=== PATIENT | female | born 1985 | race Caucasian/White ===

== ENCOUNTER 2021-03-30 16:49 | Emergency (ER) | payer OTHER ==
[~2021-03-30] VITALS: Ht 162.6 cm; Wt 100.0 kg
[~2021-03-30 16:49] MED LIST: ALPR0.5T6 PO; DEXT30TA2 PO; HYDR-2769 PO
--- NOTE | 2021-03-30 17:53 | PHYS DOC ---
Past Medical History Additional Past Medical Histor: preeclampsia (CLINT KAUR MD) Past Surgical History: No Surgical History (CLINT KAUR MD) Smoking Status: Current Every Day Smoker Alcohol Use: None (CLINT KAUR MD) General Adult EDM: Chief Complaint: HYPERTENSION HPI: HPI: Patient is a 35 year old female with history of recent admission for substance- induced NSTEMI discharged on 03/28 who presents with elevated blood pressures. She has been checking her blood pressure at home and finding it to be elevated to 180/120s. She was admitted for NSTEMI and had elevated cardiac enzymes with a normal EKG. She had a cardiac catheterization that showed normal EF, normal LV filling pressures, and no coronary artery disease. She was discharged with prescription for hydrochlorothiazide for hypertension. She has been taking this as prescribed. Denies any recurrent amphetamine or stimulant use. She stopped taking her prescribed Adderall as well. She has had a few twinges of chest pain that last a few seconds but dissipate quickly. They are not exertional. They are not similar at all to her previous NM related chest pain (described as intense pressure radiating into the jaw). Denies any shortness of breath or new lower extremity edema. No change in urine output. No severe headaches, vision changes, speech difficulty, weakness or numbness. Her PCP is Dr. Estrada (CLINT KAUR MD) Review of Systems: Review of Systems: Constitutional: Denies fever or chills. [] Eyes: Denies change in visual acuity. [] HENT: Denies nasal congestion or sore throat. [] Respiratory: Denies cough or shortness of breath. [] Cardiovascular: Reports occasional twinges of chest pain. [] GI: Denies abdominal pain, nausea, vomiting, bloody stools or diarrhea. [] : Denies dysuria. [] Musculoskeletal: Denies back pain or joint pain. [] Integument: Denies rash. [] Neurologic: Denies headache, focal weakness or sensory changes. [] Endocrine: Denies polyuria or polydipsia. [] Lymphatic: Denies swollen glands. [] Psychiatric: Denies depression or anxiety. [] (CLINT KAUR MD) Heart Score: C/O Chest Pain: Yes HEART Score for Chest Pain: HEART Score for Chest Pain Response (Comments) Value History Slighlty/Non-Suspicious 0 ECG Normal 0 Age < 45 0 Risk Factors 1 or 2 Risk Factors 1 Troponin < Normal Limit 0 Total 1 Risk Factors: Risk Factors: DM, Current or recent (<one month) smoker, HTN, HLP, family history of CAD, obesity. Risk Scores: Score 0 - 3: 2.5% MACE over next 6 weeks - Discharge Home Score 4 - 6: 20.3% MACE over next 6 weeks - Admit for Clinical Observation Score 7 - 10: 72.7% MACE over next 6 weeks - Early Invasive Strategies (CLINT KAUR MD) Family History: Family History: No pertinent family history (CLINT KAUR MD) Allergies: Allergies: Allergies Coded Allergies Type Severity Reaction Last Updated Verified No Known Drug Allergies 03/26/21 No (CLINT KAUR MD) Physical Exam: PE: Constitutional: Well developed, well nourished, no acute distress, non-toxic appearance. [] HENT: Normocephalic, atraumatic, bilateral external ears normal, oropharynx moist, no oral exudates, nose normal. [] Eyes: PERRLA, EOMI, conjunctiva normal, no discharge. [] Neck: Normal range of motion, no tenderness, supple, no stridor. [] Cardiovascular:Heart rate regular rhythm, no murmur [] Lungs & Thorax: Bilateral breath sounds clear to auscultation, no crackles. [] Abdomen: Bowel sounds normal, soft, no tenderness, no masses, no pulsatile masses. [] Skin: Warm, dry, no erythema, no rash. [] Back: No tenderness, no CVA tenderness. [] Extremities: Mild pitting edema in lower extremities, unchanged from 2012 according to patient. [] Neurologic: Alert and oriented X 3, normal motor function, normal sensory function, no focal deficits noted. [] Psychologic: Affect normal, judgement normal, mood normal. [] (CLINT KAUR MD) Current Patient Data: Vital Signs: Vital Signs Date Time Temp Pulse Resp B/P (MAP) Pulse Ox O2 Delivery O2 Flow Rate FiO2 03/30/21 17:38 94 18 146/87 (106) 100 Room Air 03/30/21 17:30 99.4 99.4 (CLINT KAUR MD) EKG: EKG: Sinus rhythm. Rate 95. Normal axis. Normal intervals. No acute or chronic ischemic changes. [] (CLINT KAUR MD) Radiology/Procedures: Radiology/Procedures: [] (CLINT KAUR MD) Course & Med Decision Making: Course & Med Decision Making Pertinent Labs and Imaging studies reviewed. 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 Cardiac catheterization during that admission showed clean coronaries, normal LV EDP, and LV EF. She was discharged on hydrochlorothiazide for hypertensive control. She has been taking her medications and denies any recent substance abuse and is presenting today with hypertension 180/120s. On arrival is hypertensive 160s/90s. No evidence of hypertensive endorgan damage on exam or history. We will check cardiac enzymes and creatinine. If cardiac enzymes are improved from previous, and no YAW feel she will likely be safe for discharge starting another antihypertensive. Discussed with her PCP, Dr. Estrada, who would prefer metoprolol succinate 50 mg daily given her higher resting heart rate in the 90s. Signed out to oncoming colleague at the end of my shift with labs pending. 1751 (CLINT KAUR MD) Course & Med Decision Making Assumed care at shift change disposition pending labs. Patient's troponin and creatinine appear to be at baseline. His blood pressure improved to 160 systol ic. Patient will be discharged home. (GLENNA MCNAMARA I DO) Dragon Disclaimer: Dragon Disclaimer: This electronic medical record was generated, in whole or in part, using a voice recognition dictation system. (CLINT KAUR MD) Departure Departure Impression: Primary Impression: Hypertension Disposition: 01 HOME / SELF CARE / HOMELESS Referrals: ARPAN GALLEGOS MD (PCP) Schedule a follow up appointment sometime in the next 2 weeks. Patient Instructions: Hypertension Additional Instructions: You have a new medication called metoprolol succinate. Please take 50 mg daily. Please follow-up with Dr. Estrada to ensure that your blood pressure is improving. You will need him to refill your new prescription. You can also discuss your Adderall prescription with him. Please try to stop smoking. If you develop severe chest pain please return to the emergency department. Scripts Metoprolol Succinate (METOPROLOL SUCCINATE ( XL )) 25 Mg Tab.er.24h 2 TAB PO DAILY for hypertension for 30 Days, #60 TAB 0 Refills Prov: CLINT KAUR MD 03/30/21 CLINT KAUR MD Mar 30, 2021 17:53 GLENNA MCNAMARA DO Mar 30, 2021 18:33
[2021-03-30 17:56] LABS: BASO # 0.1 x10^3/uL (0.0-0.2); BASO % 1 % (0-3); EOS # 0.5 x10^3/uL (0.0-0.7); EOS % 6 % (0-3); HEMATOCRIT 41.1 % (36.0-47.0); HEMOGLOBIN 14.4 g/dL (12.0-15.5); LYMPH # 1.8 x10^3/uL (1.0-4.8); LYMPH % 20 % (24-48); MEAN CORPUSCULAR HEMOGLOBIN 32 pg (25-35); MEAN CORPUSCULAR HGB CONC 35 g/dL (31-37); MEAN CORPUSCULAR VOLUME 92 fL (79-100); MONO # 0.6 x10^3/uL (0.0-1.1); MONO % 7 % (0-9); NEUT # 5.9 x10^3/uL (1.8-7.7); NEUT % 66 % (31-73); PLATELET COUNT 344 x10^3/uL (140-400); RED BLOOD COUNT 4.45 x10^6/uL (3.50-5.40); RED CELL DISTRIBUTION WIDTH 12.4 % (11.5-14.5); WHITE BLOOD COUNT 8.9 x10^3/uL (4.0-11.0)
[2021-03-30] MEDS ORDERED: METO-239 PO (18:04)
[2021-03-30 18:45] LABS: CALCIUM 9.9 mg/dL (8.5-10.1); CREATININE 0.8 mg/dL (0.6-1.0); GFR 82.1; POTASSIUM 4.6 mmol/L (3.5-5.1)
[2021-03-30 19:39] VITALS: BP 102/91
[2021-03-30] MEDS ORDERED: METOPROLOL SUCC 24HR ER 25 MG TAB.ER.24H. PO ONE (19:45)
--- NOTE | 2021-03-30 22:16 | EKG ---
[facility] [address] [place] [address] Test Date: 2021-03-30 Test Time: 17:34:00 Pat Name: SHAHAB TALBERT Department: Room: Gender: F [employer] Supervisor: : 1985 Requested By: CLINT KAUR Order Number: [id number] Reading MD: Measurements Intervals [place] Rate: 95 P: 23 [place]: 130 QRS: 18 QRSD: 82 T: 29 QT: 332 QTc: 420 Interpretive Statements SINUS RHYTHM LEFT ATRIAL ABNORMALITY ABNORMAL ECG RI6.02 No previous ECG available for comparison
== END 2021-03-30 19:44 | disposition home or self-care (01) ==
LOC: ER 16:49
DX: I10 Essential (primary) hypertension (principal); F17.200 Nicotine dependence, unspecified, uncomplicated
CPT/HCPCS: 36415; 80048; 84484; 85025; 93005; 99285-25

== ENCOUNTER 2021-04-09 15:02 | Observation (INO) | payer OTHER ==
[~2021-04-09] VITALS: Ht 162.6 cm; Wt 104.3 kg
[~2021-04-09 15:02] MED LIST changes: +METO-239 PO
--- NOTE | 2021-04-09 15:49 | RAD ---
EXAM: Chest, 2 views. HISTORY: Chest pain. COMPARISON: None. FINDINGS: 2 views of the chest are obtained. There is no infiltrate, pleural effusion or pneumothorax . The heart is normal in size. IMPRESSION: No acute pulmonary finding. Electronically signed by: Barbie Betts MD (04/09/2021 3:47 PM) [id number]
--- NOTE | 2021-04-09 15:51 | ED.ADGEN ---
Past Medical History Additional Past Medical Histor: preeclampsia Past Surgical History: Other Smoking Status: Current Every Day Smoker Alcohol Use: Occasionally General Adult EDM: Chief Complaint: CHEST PAIN HPI: HPI: 35-year-old female presenting via EMS from her primary care provider's office for chest pain. Patient has a history significant for an NSTEMI approximately 2 weeks ago. She was seen at [facility] and diagnosed with NSTEMI, she admitted to relapse of methamphetamine use just prior to symptom onset at that time. She was transferred here and had a negative heart cath with a normal EF. Patient denies having any drug use recently. States that she has had these chest pains off and on since that initial episode but today it was more intense. States she took one of her hydrocodone that she had from her previous discharge as well as 325 mg aspirin prior to seeing her primary care provider. In the office there was some concern for her chest pain symptoms as well as ST elevation in some anterior leads on her EKG. Patient states the pain is in her left chest and radiates to her neck and her arm. Is worse with palpation, and states that her previous chest pain is worse with palpation. States she continues to smoke cigarettes, last marijuana use 1 to 2 weeks ago. States she has been avoiding her Adderall for ADHD caffeine, and not use any illicit substances other than marijuana. Has a history of hypertension and is on 3 medications. Hypertension started when she had preeclampsia when she was 2 years ago. Patient's father of an [place] at age 52. Patient was given 1 sublingual nitroglycerin by EMS that brought her chest pain from a 4 to a 0, she is currently chest pain-free in the emergency department. Review of Systems: Review of Systems: All other systems within normal limits except for as noted in the HPI Current Medications: Current Medications Medications (Trade) Dose Ordered Sig/Benny Start Time Stop Time Status Last Admin Dose Admin Fentanyl Citrate (Fentanyl 2ml Vial) 75 mcg 1X ONCE 04/09/21 17:15 04/09/21 17:20 DC 04/09/21 17:20 75 MCG Nitroglycerin (Nitrostat) 0.4 mg PRN Q5MIN PRN 04/09/21 16:00 04/09/21 16:04 0.4 MG Sodium Chloride 500 ml @ 500 mls/hr 1X ONCE 04/09/21 16:15 04/09/21 17:14 DC 04/09/21 16:15 500 MLS/HR Allergies: Allergies: Allergies Coded Allergies Type Severity Reaction Last Updated Verified No Known Drug Allergies 03/26/21 No Physical Exam: PE: Constitutional: Well developed, well nourished, no acute distress, non-toxic appearance. [] HENT: Normocephalic, atraumatic, bilateral external ears normal, nose normal. [] Eyes: PERRLA, conjunctiva normal, no discharge. [] Neck: No rigidity, supple, no stridor. [] Cardiovascular: Regular rate and rhythm, brisk cap refill [] Lungs & Thorax: Non labored symmetric respirations, no tachypnea or respiratory distress [] Abdomen: Soft, nondistended. Skin: Warm, dry, no erythema, no rash. [] Back: Unremarkable Extremities: No deformities, range of motion grossly intact, no lower extremity edema [] Neurologic: Alert and oriented X 3, no focal deficits noted. [] Psychologic: Affect normal, judgement normal, mood normal. [] Current Patient Data: Labs: Laboratory Tests Test 04/09/21 15:48 White Blood Count 8.1 x10^3/uL (4.0-11.0) Red Blood Count 4.16 x10^6/uL (3.50-5.40) Hemoglobin 13.2 g/dL (12.0-15.5) Hematocrit 37.9 % (36.0-47.0) Mean Corpuscular Volume 91 fL (79-100) Mean Corpuscular Hemoglobin 32 pg (25-35) Mean Corpuscular Hemoglobin Concent 35 g/dL (31-37) Red Cell Distribution Width 12.6 % (11.5-14.5) Platelet Count 352 x10^3/uL (140-400) Neutrophils (%) (Auto) 57 % (31-73) Lymphocytes (%) (Auto) 29 % (24-48) Monocytes (%) (Auto) 7 % (0-9) Eosinophils (%) (Auto) 6 % (0-3) H Basophils (%) (Auto) 1 % (0-3) Neutrophils # (Auto) 4.6 x10^3/uL (1.8-7.7) Lymphocytes # (Auto) 2.4 x10^3/uL (1.0-4.8) Monocytes # (Auto) 0.5 x10^3/uL (0.0-1.1) Eosinophils # (Auto) 0.5 x10^3/uL (0.0-0.7) Basophils # (Auto) 0.1 x10^3/uL (0.0-0.2) D-Dimer (Lulu) < 0.27 ug/mlFEU POC Urine HCG, Qualitative Hcg negative (Negative) Sodium Level 140 mmol/L (136-145) Potassium Level 3.9 mmol/L (3.5-5.1) Chloride Level 102 mmol/L (98-107) Carbon Dioxide Level 30 mmol/L (21-32) Anion Gap 8 (6-14) Blood Urea Nitrogen 18 mg/dL (7-20) Creatinine 0.9 mg/dL (0.6-1.0) Estimated GFR (Cockcroft-Gault) 71.7 BUN/Creatinine Ratio 20 (6-20) Glucose Level 85 mg/dL (70-99) Calcium Level 9.5 mg/dL (8.5-10.1) Magnesium Level 2.2 mg/dL (1.8-2.4) Total Bilirubin 0.3 mg/dL (0.2-1.0) Aspartate Amino Transferase (AST) 22 U/L (15-37) Alanine Aminotransferase (ALT) 46 U/L (14-59) Alkaline Phosphatase 78 U/L (46-116) Creatine Kinase 83 U/L (26-192) Myoglobin 35 ng/mL (9-82) Troponin I Quantitative 0.025 ng/mL (0.000-0.055) C-Reactive Protein, Quantitative 4.1 mg/L (0-3.3) H XI-Qcb-M-Type Natriuretic Peptide 133 pg/mL (0-124) H Total Protein 6.6 g/dL (6.4-8.2) Albumin 3.7 g/dL (3.4-5.0) Albumin/Globulin Ratio 1.3 (1.0-1.7) Lipase 115 U/L (73-393) Laboratory Tests 04/09/21 15:48 Laboratory Tests 04/09/21 15:48 Vital Signs: Vital Signs Date Time Temp Pulse Resp B/P (MAP) Pulse Ox O2 Delivery O2 Flow Rate FiO2 04/09/21 17:20 Room Air 04/09/21 17:13 16 136/64 (88) 100 04/09/21 16:04 86 04/09/21 15:18 98.0 98.0 EKG: EKG: Sinus rhythm, heart rate 90 bpm, normal axis, no ST elevation or depression, no ectopy. [] Heart Score: C/O Chest Pain: Yes HEART Score for Chest Pain: HEART Score for Chest Pain Response (Comments) Value History Moderately Suspicious 1 ECG Nonspecific Repolarizatio 1 Age < 45 0 Risk Factors 1 or 2 Risk Factors 1 Troponin < Normal Limit 0 Total 3 Risk Factors: Risk Factors: DM, Current or recent (<one month) smoker, HTN, HLP, family history of CAD, obesity. Risk Scores: Score 0 - 3: 2.5% MACE over next 6 weeks - Discharge Home Score 4 - 6: 20.3% MACE over next 6 weeks - Admit for Clinical Observation Score 7 - 10: 72.7% MACE over next 6 weeks - Early Invasive Strategies Radiology/Procedures: Radiology/Procedures: [facility] [address] [place] [address] IMAGING REPORT Signed PATIENT: SHAHAB TALBERT ACCOUNT: [id number] : 1985 LOCATION: ER AGE: 35 SEX: F EXAM STATUS: PRE ER ORD. PHYSICIAN: MARIBETH FAROOQ MD REASON: chest pain PROCEDURE: CHEST PA & LATERAL EXAM: Chest, 2 views. HISTORY: Chest pain. COMPARISON: None. FINDINGS: 2 views of the chest are obtained. There is no infiltrate, pleural effusion or pneumothorax. The heart is normal in size. IMPRESSION: No acute pulmonary finding. Electronically signed by: Barbie Quiñonez MD (04/09/2021 3:47 PM) [id number] DICTATED and SIGNED BY: BARBIE QUIÑONEZ MD DATE: 04/09/21 [id number] [] Course & Med Decision Making: Course & Med Decision Making Pertinent Labs and Imaging studies reviewed. (See chart for details) Patient with chest pain similar to previous and STEMI. Initial troponin detectable within normal range, we will keep her chest pain observation. Patient's symptoms usually start at night, discussed possibility of Prinzmetal's angina. Patient also states that she drank a diet drink today was for keto salts, which she had never had before [] Apolinar Disclaimer: Apolinar Disclaimer: This electronic medical record was generated, in whole or in part, using a voice recognition dictation system. Departure Departure Impression: Primary Impression: Chest pain Disposition: ADMITTED INPATIENT Admitting Physician: IVY Condition: STABLE Referrals: ARPAN GALLEGOS MD (PCP) MARIBETH FAROOQ MD Apr 09, 2021 15:51
[2021-04-09] MEDS ORDERED: NITROGLYCERIN SUBLINGUAL 0.4 MG BOTTLE OF 25. SL PRN ×3 (16:00→18:45)
[2021-04-09 16:02] LABS: BASO # 0.1 x10^3/uL (0.0-0.2); BASO % 1 % (0-3); EOS # 0.5 x10^3/uL (0.0-0.7); EOS % 6 % (0-3); HEMATOCRIT 37.9 % (36.0-47.0); HEMOGLOBIN 13.2 g/dL (12.0-15.5); LYMPH # 2.4 x10^3/uL (1.0-4.8); LYMPH % 29 % (24-48); MEAN CORPUSCULAR HEMOGLOBIN 32 pg (25-35); MEAN CORPUSCULAR HGB CONC 35 g/dL (31-37); MEAN CORPUSCULAR VOLUME 91 fL (79-100); MONO # 0.5 x10^3/uL (0.0-1.1); MONO % 7 % (0-9); NEUT # 4.6 x10^3/uL (1.8-7.7); NEUT % 57 % (31-73); PLATELET COUNT 352 x10^3/uL (140-400); RED BLOOD COUNT 4.16 x10^6/uL (3.50-5.40); RED CELL DISTRIBUTION WIDTH 12.6 % (11.5-14.5); WHITE BLOOD COUNT 8.1 x10^3/uL (4.0-11.0)
[2021-04-09 16:14] LABS: CALCIUM 9.5 mg/dL (8.5-10.1); CREATININE 0.9 mg/dL (0.6-1.0); GFR 71.7; POTASSIUM 3.9 mmol/L (3.5-5.1)
[2021-04-09] MEDS ORDERED: IV NORMAL SALINE 500ML BAG 500 ML IV ONE (16:15)
[2021-04-09 16:26] LABS: ALBUMIN 3.7 g/dL (3.4-5.0); ALBUMIN/GLOBULIN RATIO 1.3 (1.0-1.7); C-REACTIVE PROTEIN 4.1 mg/L (0-3.3); MAGNESIUM 2.2 mg/dL (1.8-2.4); TOTAL BILIRUBIN 0.3 mg/dL (0.2-1.0); TOTAL PROTEIN 6.6 g/dL (6.4-8.2)
[2021-04-09] MEDS ORDERED: fentaNYL PF VIAL 100 MCG/2 ML VIAL IVP ONE (17:15)
--- NOTE | 2021-04-09 17:29 | EKG ---
[facility] [address] [place] [address] Test Date: 2021-04-09 Test Time: 15:29:32 Pat Name: SHAHAB TALBERT Department: Room: Gender: F General Activities Therapist: : 1985 Requested By: MARIBETH FAROOQ Order Number: [id number] Reading MD: Measurements Intervals [place] Rate: 98 P: 24 [place]: 140 QRS: 17 QRSD: 82 T: 26 QT: 364 QTc: 467 Interpretive Statements SINUS RHYTHM LEFT ATRIAL ABNORMALITY QRS(T) CONTOUR ABNORMALITY CONSIDER ANTEROLATERAL MYOCARDIAL DAMAGE ABNORMAL ECG RI6.01 No previous ECG available for comparison
[2021-04-09] MEDS ORDERED: ACETAMINOPHEN 325 MG TABLET. PO PRN ×2 (17:45→18:45)
[2021-04-09] MEDS ORDERED: ONDANSETRON PF 4 MG/2 ML VIAL. IVP PRN ×2 (17:45→18:45)
--- NOTE | 2021-04-09 18:39 | PDOC1 ---
History and Physical Date of Service: DOS: DATE: 04/09/21 TIME: 18:30 Chief Complaint: Chief Complain: Chest pain History of Present Illness: HPI: Patient is a 36-year-old female with past medical history of non-STEMI seen 2 weeks ago and now left heart cath completed that was negative and no interventions were done. She presents again today with chest pain that was similar in her substernal region compared to last time but this time it occurred while she was working. She states that she does have history of panic attacks but this does not feel like that. But right after this she says that she does have anxiety because she saw her dad of a heart attack when she was 19 years old and she has been seen in the ED before and she thought was a heart attack. She does have a history of methamphetamine abuse and THC abuse. Patient denies any fevers, shortness of breath, abdominal pain, syncope, palpitation, dysuria, diarrhea or bloody stools. Rest of history obtained from discussion with the ED physician, please read her HPI below 35-year-old female presenting via EMS from her primary care provider's office for chest pain. Patient has a history significant for an NSTEMI approximately 2 weeks ago. She was seen at [place] ED and diagnosed with NSTEMI, she admitted to relapse of methamphetamine use just prior to symptom onset at that time. She was transferred here and had a negative heart cath with a normal EF. Patient denies having any drug use recently. States that she has had these chest pains off and on since that initial episode but today it was more intense. States she took one of her hydrocodone that she had from her previous discharge as well as 325 mg aspirin prior to seeing her primary care provider. In the office there was some concern for her chest pain symptoms as well as ST elevation in some anterior leads on her EKG. Patient states the pain is in her left chest and radiates to her neck and her arm. Is worse with palpation, and states that her previous chest pain is worse with palpation. States she continues to smoke cigarettes, last marijuana use 1 to 2 weeks ago. States she has been avoiding her Adderall for ADHD caffeine, and not use any illicit substances other than marijuana. Has a history of hypertension and is on 3 medications. Hypertension started when she had preeclampsia when she was 2 years ago. Patient's father of an [place] at age 52. Patient was given 1 sublingual nitroglycerin by EMS that brought her chest pain from a 4 to a 0, she is currently chest pain-free in the emergency department. Past Medical/Surgical History: PMH/PSH: Past Medical History: preeclampsia Past Surgical History: Denies Allergies: Allergies: Coded Allergies: No Known Drug Allergies (Unverified , 03/26/21) Family History: Family History: Reviewed with not relevant findings Social History: Social History: Current everyday smoker and history of methamphetamine use Current Medications: Current Medications Current Medications Nitroglycerin (Nitrostat) 0.4 mg PRN Q5MIN PRN SL CHEST PAIN Last administered on 04/09/21at 16:04; Start 04/09/21 at 16:00 Sodium Chloride 500 ml @ 500 mls/hr 1X ONCE IV Last administered on 04/09/21at 16:15; Start 04/09/21 at 16:15; Stop 04/09/21 at 17:14; Status DC Fentanyl Citrate (Fentanyl 2ml Vial) 75 mcg 1X ONCE IVP Last administered on 04/09/21at 17:20; Start 04/09/21 at 17:15; Stop 04/09/21 at 17:20; Status DC Ondansetron HCl (Zofran) 4 mg PRN Q8HRS PRN IVP NAUSEA/VOMITING; Start 04/09/21 at 17:45; Stop 04/10/21 at 17:44 Fentanyl Citrate (Fentanyl 2ml Vial) 50 mcg PRN Q1HR PRN IVP PAIN; Start 04/09/21 at 17:45; Stop 04/10/21 at 17:44 Acetaminophen (Tylenol) 650 mg PRN Q4HRS PRN PO FEVER > 100.3'F; Start 04/09/21 at 17:45; Stop 04/10/21 at 17:44 Nitroglycerin (Nitrostat) 0.4 mg PRN Q5MIN PRN SL CHEST PAIN; Start 04/09/21 at 17:45; Stop 04/10/21 at 17:44 Active Scripts Active Metoprolol Succinate ( Xl ) (Metoprolol Succinate) 25 Mg Tab.er.24h 2 Tab PO DAILY 30 Days Hydrocodone-Apap 10-325 (Hydrocodone Bit/Acetaminophen) 1 Tab Tablet 1 Tab PO PRN Q6HRS PRN 6 Days Reported Alprazolam 0.5 Mg Tablet 0.5 Mg PO PRN Q6HRS PRN Adderall 30 Mg Tablet (Dextroamphetamine/Amphetamine) 30 Mg Tablet 1 Tab PO BID MDD 2 Tablet(s) 30 Days ROS: Review of Systems Review of System REVIEW OF SYSTEMS: GENERAL: Denies weakness SKIN: No bruising, hair changes or rashes. EYES: No blurred, double or loss of vision. NOSE AND THROAT: No history of nosebleeds, hoarseness or sore throat. HEART: Positive for chest pain LUNGS: Denies cough, hemoptysis, wheezing or shortness of breath. GASTROINTESTINAL: Denies changes in appetite, nausea, vomiting, diarrhea or constipation. GENITOURINARY: No history of frequency, urgency, hesitancy or nocturia. NEUROLOGIC: Denies history of numbness, tingling, or tremor. PSYCHIATRIC: No history of panic, anxiety or depression. ENDOCRINE: No history of heat or cold intolerance, polyuria or polydipsia. EXTREMITIES: Denies joint pain, pain on walking or stiffness. Physical Exam: Vital Signs: Vital Signs Date Time Temp Pulse Resp B/P (MAP) Pulse Ox O2 Delivery O2 Flow Rate FiO2 04/09/21 17:20 Room Air 04/09/21 17:13 16 136/64 (88) 100 04/09/21 16:04 86 04/09/21 15:18 98.0 98.0 Physcial Exam: General: Well developed, well nourished, no acute distress, well appearing HEENT: Pupils equally round and reactive to light, EOMI, no discharge, normal conjunctiva Neck: Supple, no nuchal rigidity, no JVD, trachea midline, no tenderness Cardiac: RRR, no murmurs, no gallops, no rubs. Reproducible chest tenderness in the subclavicular region. Chest/Lungs: CTAB, no wheeze, no rhonchi, no crackles Abdomen: soft, non-distended, no guarding, no peritoneal signs, non-tender Back: No tenderness Extremities: no edema, pulses intact, non-tender,capillary refill <3 sec bilateral upper and lower extremities, Neuro: Alert and oriented x 4, no focal deficits, normal speech all other Labs: Labs: Laboratory Tests Test 04/09/21 15:48 White Blood Count 8.1 x10^3/uL (4.0-11.0) Red Blood Count 4.16 x10^6/uL (3.50-5.40) Hemoglobin 13.2 g/dL (12.0-15.5) Hematocrit 37.9 % (36.0-47.0) Mean Corpuscular Volume 91 fL (79-100) Mean Corpuscular Hemoglobin 32 pg (25-35) Mean Corpuscular Hemoglobin Concent 35 g/dL (31-37) Red Cell Distribution Width 12.6 % (11.5-14.5) Platelet Count 352 x10^3/uL (140-400) Neutrophils (%) (Auto) 57 % (31-73) Lymphocytes (%) (Auto) 29 % (24-48) Monocytes (%) (Auto) 7 % (0-9) Eosinophils (%) (Auto) 6 % (0-3) Basophils (%) (Auto) 1 % (0-3) Neutrophils # (Auto) 4.6 x10^3/uL (1.8-7.7) Lymphocytes # (Auto) 2.4 x10^3/uL (1.0-4.8) Monocytes # (Auto) 0.5 x10^3/uL (0.0-1.1) Eosinophils # (Auto) 0.5 x10^3/uL (0.0-0.7) Basophils # (Auto) 0.1 x10^3/uL (0.0-0.2) D-Dimer (Lulu) < 0.27 ug/mlFEU Bedside Urine HCG, Qualitative Hcg negative (Negative) Sodium Level 140 mmol/L (136-145) Potassium Level 3.9 mmol/L (3.5-5.1) Chloride Level 102 mmol/L (98-107) Carbon Dioxide Level 30 mmol/L (21-32) Anion Gap 8 (6-14) Blood Urea Nitrogen 18 mg/dL (7-20) Creatinine 0.9 mg/dL (0.6-1.0) Estimated GFR (Cockcroft-Gault) 71.7 BUN/Creatinine Ratio 20 (6-20) Glucose Level 85 mg/dL (70-99) Calcium Level 9.5 mg/dL (8.5-10.1) Magnesium Level 2.2 mg/dL (1.8-2.4) Total Bilirubin 0.3 mg/dL (0.2-1.0) Aspartate Amino Transf (AST/SGOT) 22 U/L (15-37) Alanine Aminotransferase (ALT/SGPT) 46 U/L (14-59) Alkaline Phosphatase 78 U/L (46-116) Creatine Kinase 83 U/L (26-192) Myoglobin 35 ng/mL (9-82) Troponin I Quantitative 0.025 ng/mL (0.000-0.055) C-Reactive Protein, Quantitative 4.1 mg/L (0-3.3) MO-Clw-P-Type Natriuretic Peptide 133 pg/mL (0-124) Total Protein 6.6 g/dL (6.4-8.2) Albumin 3.7 g/dL (3.4-5.0) Albumin/Globulin Ratio 1.3 (1.0-1.7) Lipase 115 U/L (73-393) Laboratory Tests Test 04/09/21 15:48 White Blood Count 8.1 x10^3/uL (4.0-11.0) Red Blood Count 4.16 x10^6/uL (3.50-5.40) Hemoglobin 13.2 g/dL (12.0-15.5) Hematocrit 37.9 % (36.0-47.0) Mean Corpuscular Volume 91 fL (79-100) Mean Corpuscular Hemoglobin 32 pg (25-35) Mean Corpuscular Hemoglobin Concent 35 g/dL (31-37) Red Cell Distribution Width 12.6 % (11.5-14.5) Platelet Count 352 x10^3/uL (140-400) Neutrophils (%) (Auto) 57 % (31-73) Lymphocytes (%) (Auto) 29 % (24-48) Monocytes (%) (Auto) 7 % (0-9) Eosinophils (%) (Auto) 6 % (0-3) Basophils (%) (Auto) 1 % (0-3) Neutrophils # (Auto) 4.6 x10^3/uL (1.8-7.7) Lymphocytes # (Auto) 2.4 x10^3/uL (1.0-4.8) Monocytes # (Auto) 0.5 x10^3/uL (0.0-1.1) Eosinophils # (Auto) 0.5 x10^3/uL (0.0-0.7) Basophils # (Auto) 0.1 x10^3/uL (0.0-0.2) D-Dimer (Lulu) < 0.27 ug/mlFEU Bedside Urine HCG, Qualitative Hcg negative (Negative) Sodium Level 140 mmol/L (136-145) Potassium Level 3.9 mmol/L (3.5-5.1) Chloride Level 102 mmol/L (98-107) Carbon Dioxide Level 30 mmol/L (21-32) Anion Gap 8 (6-14) Blood Urea Nitrogen 18 mg/dL (7-20) Creatinine 0.9 mg/dL (0.6-1.0) Estimated GFR (Cockcroft-Gault) 71.7 BUN/Creatinine Ratio 20 (6-20) Glucose Level 85 mg/dL (70-99) Calcium Level 9.5 mg/dL (8.5-10.1) Magnesium Level 2.2 mg/dL (1.8-2.4) Total Bilirubin 0.3 mg/dL (0.2-1.0) Aspartate Amino Transf (AST/SGOT) 22 U/L (15-37) Alanine Aminotransferase (ALT/SGPT) 46 U/L (14-59) Alkaline Phosphatase 78 U/L (46-116) Creatine Kinase 83 U/L (26-192) Myoglobin 35 ng/mL (9-82) Troponin I Quantitative 0.025 ng/mL (0.000-0.055) C-Reactive Protein, Quantitative 4.1 mg/L (0-3.3) GP-Rsi-D-Type Natriuretic Peptide 133 pg/mL (0-124) Total Protein 6.6 g/dL (6.4-8.2) Albumin 3.7 g/dL (3.4-5.0) Albumin/Globulin Ratio 1.3 (1.0-1.7) Lipase 115 U/L (73-393) Images: Images CXR Impression: 1. No acute cardiopulmonary process. Assessment/Plan Assessment/Plan Chest pain concerning for unstable angina/NSTEMI, possible pericarditis, most likely musculoskeletal involvement with reproducible chest tenderness upon palpation History of methamphetamine abuse Polysubstance abuse Morbid obesity Admit to Hospitalist service for further management EKG showing diffuse ST elevations Troponin negative x1 Continue aspirin, Cardiology consulted for predischarge stress testing Continue nitroglycerin as needed for pain Continue beta-zarina if blood pressures allow Continue high intensity statins IV morphine as needed Consider Lovenox Maintain O2 sats between 88 to 95% Trend troponins Repeat EKG in the a.m. Continue telemetry monitoring Monitor for electrolyte abnormalities Consider NSAIDs for pericarditis pain or musculoskeletal pain Justifications for Admission Other Justification JAVI VERMA MD Apr 09, 2021 18:39
[2021-04-09] MEDS ORDERED: DEXTROSE 50% 25 GM / 50ML DISP.SYRIN. IV PRN (18:45)
[2021-04-09] MEDS ORDERED: PROCHLORPERAZINE 10 MG/2 ML VIAL. IV PRN (18:45)
[2021-04-09] MEDS: IV NORMAL SALINE 1000ML BAG 1,000 ML IV SCH ×2 (18:45→22:04)
[2021-04-09] MEDS ORDERED: SENNOSIDES 8.6 MG TABLET PO PRN (18:45)
[2021-04-09] MEDS ORDERED: DOCUSATE SODIUM 100 MG CAPSULE. PO PRN (18:45)
[2021-04-09] MEDS: fentaNYL PF VIAL 100 MCG/2 ML VIAL IVP PRN ×4 (18:48→23:40)
[2021-04-09 19:21] LABS: BARBITURATES NEG (NEG); BENZODIAZEPINES NEG (NEG); CANNABINOIDS NEG (NEG); COCAINE NEG (NEG); METHADONE NEG (NEG); OPIATES POS (NEG); PHENCYCLIDINE NEG (NEG)
[2021-04-09 19:25] LABS: AMPHETAMINE/METHAMPHETAMINE NEG (NEG)
[2021-04-09 19:36] LABS: BILIRUBIN,URINE NEGATIVE (NEG); CLARITY,URINE CLEAR; COLOR,URINE YELLOW; NITRITE,URINE NEGATIVE (NEG); PROTEIN,URINE NEGATIVE (NEG-TRACE); UROBILINOGEN,URINE 0.2 mg/dL (0.2 mg/dL)
[2021-04-09 19:43] LABS: AMORPHOUS SEDIMENT,UR PRESENT /HPF; BACTERIA,URINE FEW /HPF (0-FEW); RBC,URINE RARE /HPF (0-2)
[2021-04-09] MEDS: LORazepam 0.5 MG TABLET PO PRN (19:52)
[2021-04-09] MEDS ORDERED: ENOXAPARIN 40 MG/0.4 ML SYRINGE. SQ SCH (21:00)
[2021-04-09 21:40] VITALS: BP 149/91
--- NOTE | 2021-04-09 22:00 | NUR ---
The patient, SHAHAB TALBERT, 35 y/o, F admitted by JAVI VERMA MD, was given written information regarding hospital policies, unit procedures and contact persons. Pt alert and oriented x4 pt ambulated to restroom with standby assist and to bed. Vs obtained and stable assessment complained of pain to chest,and back with an headache 10/10 pt also feeling nauseated. Call light placed in pt reach will medicate pt and resume care.Pt personal belongings at bedside.
[2021-04-09 23:00] VITALS: BP 134/81
[2021-04-10] MEDS: fentaNYL PF VIAL 100 MCG/2 ML VIAL IVP PRN ×4 (00:57→07:27)
[2021-04-10] MEDS ORDERED: HYDR25TA10 PO (01:22)
[2021-04-10] MEDS: LORazepam 0.5 MG TABLET PO PRN (02:04)
[2021-04-10 02:51] VITALS: BP 118/70
[2021-04-10 05:01] LABS: BASO % 1 % (0-3); EOS % 0 % (0-3); HEMATOCRIT 38.3 % (36.0-47.0); HEMOGLOBIN 13.1 g/dL (12.0-15.5); LYMPH # 2.1 x10^3/uL (1.0-4.8); LYMPH % 35 % (24-48); MEAN CORPUSCULAR HEMOGLOBIN 32 pg (25-35); MEAN CORPUSCULAR HGB CONC 34 g/dL (31-37); MEAN CORPUSCULAR VOLUME 93 fL (79-100); MONO # 0.6 x10^3/uL (0.0-1.1); MONO % 10 % (0-9); NEUT # 3.3 x10^3/uL (1.8-7.7); NEUT % 55 % (31-73); PLATELET COUNT 280 x10^3/uL (140-400); RED BLOOD COUNT 4.14 x10^6/uL (3.50-5.40); WHITE BLOOD COUNT 6.1 x10^3/uL (4.0-11.0)
[2021-04-10 05:34] LABS: CALCIUM 8.9 mg/dL (8.5-10.1); CREATININE 0.8 mg/dL (0.6-1.0); GFR 82.1; MAGNESIUM 2.3 mg/dL (1.8-2.4); PHOSPHORUS 4.4 mg/dL (2.6-4.7); POTASSIUM 4.2 mmol/L (3.5-5.1)
[2021-04-10 07:00] VITALS: BP 130/85
[2021-04-10] MEDS: IV NORMAL SALINE 1000ML BAG 1,000 ML IV SCH (07:29)
[2021-04-10] MEDS ORDERED: ASPIRIN ENTERIC COATED 81 MG TABLET.DR. PO SCH (08:00)
[2021-04-10] MEDS ORDERED: PANTOPRAZOLE 40 MG TABLET.DR. PO ONE (09:30)
[2021-04-10] MEDS ORDERED: LIDO:MAALOX 1:1 20 ML SINGLE DOSE. SWSW ONE (09:30)
--- NOTE | 2021-04-10 09:53 | PDOC ---
ANKUR MAYA DIRECTOR OF CASEWORK SERVICES 04/10/21 0953: CARDIO Progress Notes Date and Time Date of Service 04/10/2021 Time of Evaluation 0920 Subjective Subjective: No Chest Pain, No shortness of breath, No Palpitations Vitals Vitals Vital Signs Date Time Temp Pulse Resp B/P (MAP) Pulse Ox O2 Delivery O2 Flow Rate FiO2 04/10/21 07:27 16 95 Room Air 04/10/21 07:00 97.9 89 130/85 (100) 97.9 04/10/21 02:36 2.0 Weight Weight [ ] Input and Output Intake and Output Intake and Output 04/10/21 07:00 Intake Total 300 ml Output Total 400 ml Balance -100 ml Intake Oral 300 ml Output Urine Total 400 ml Laboratory Labs Laboratory Tests Test 04/09/21 15:44 04/09/21 15:48 04/09/21 18:55 04/09/21 23:40 Urine Collection Type Unknown Urine Color Yellow Urine Clarity Clear Urine pH 7.0 (<5.0-8.0) Urine Specific [place] 1.020 (1.000-1.030) Urine Protein Negative mg/dL (NEG-TRACE) Urine Glucose (UA) Negative mg/dL (NEG) Urine Ketones (Stick) Negative mg/dL (NEG) Urine Blood Small (NEG) Urine Nitrite Negative (NEG) Urine Bilirubin Negative (NEG) Urine Urobilinogen Dipstick 0.2 mg/dL (0.2 mg/dL) Urine Leukocyte Esterase Trace (NEG) Urine RBC Rare /HPF (0-2) Urine WBC 1-4 /HPF (0-4) Urine Squamous Epithelial Cells Many /LPF Urine Amorphous Sediment Present /HPF Urine Bacteria Few /HPF (0-FEW) Urine Mucus Slight /LPF Urine Opiates Screen Pos (NEG) Urine Methadone Screen Neg (NEG) Urine Barbiturates Neg (NEG) Urine Phencyclidine Screen Neg (NEG) Urine Amphetamine/Methamphetamine Neg (NEG) Urine Benzodiazepines Screen Neg (NEG) Urine Cocaine Screen Neg (NEG) Urine Cannabinoids Screen Neg (NEG) Urine Ethyl Alcohol Neg (NEG) White Blood Count 8.1 x10^3/uL (4.0-11.0) Red Blood Count 4.16 x10^6/uL (3.50-5.40) Hemoglobin 13.2 g/dL (12.0-15.5) Hematocrit 37.9 % (36.0-47.0) Mean Corpuscular Volume 91 fL (79-100) Mean Corpuscular Hemoglobin 32 pg (25-35) Mean Corpuscular Hemoglobin Concent 35 g/dL (31-37) Red Cell Distribution Width 12.6 % (11.5-14.5) Platelet Count 352 x10^3/uL (140-400) Neutrophils (%) (Auto) 57 % (31-73) Lymphocytes (%) (Auto) 29 % (24-48) Monocytes (%) (Auto) 7 % (0-9) Eosinophils (%) (Auto) 6 % (0-3) Basophils (%) (Auto) 1 % (0-3) Neutrophils # (Auto) 4.6 x10^3/uL (1.8-7.7) Lymphocytes # (Auto) 2.4 x10^3/uL (1.0-4.8) Monocytes # (Auto) 0.5 x10^3/uL (0.0-1.1) Eosinophils # (Auto) 0.5 x10^3/uL (0.0-0.7) Basophils # (Auto) 0.1 x10^3/uL (0.0-0.2) D-Dimer (Lulu) < 0.27 ug/mlFEU Bedside Urine HCG, Qualitative Hcg negative (Negative) Sodium Level 140 mmol/L (136-145) Potassium Level 3.9 mmol/L (3.5-5.1) Chloride Level 102 mmol/L (98-107) Carbon Dioxide Level 30 mmol/L (21-32) Anion Gap 8 (6-14) Blood Urea Nitrogen 18 mg/dL (7-20) Creatinine 0.9 mg/dL (0.6-1.0) Estimated GFR (Cockcroft-Gault) 71.7 BUN/Creatinine Ratio 20 (6-20) Glucose Level 85 mg/dL (70-99) Calcium Level 9.5 mg/dL (8.5-10.1) Magnesium Level 2.2 mg/dL (1.8-2.4) Total Bilirubin 0.3 mg/dL (0.2-1.0) Aspartate Amino Transf (AST/SGOT) 22 U/L (15-37) Alanine Aminotransferase (ALT/SGPT) 46 U/L (14-59) Alkaline Phosphatase 78 U/L (46-116) Creatine Kinase 83 U/L (26-192) Myoglobin 35 ng/mL (9-82) Troponin I Quantitative 0.025 ng/mL (0.000-0.055) 0.105 ng/mL (0.000-0.055) 0.146 ng/mL (0.000-0.055) C-Reactive Protein, Quantitative 4.1 mg/L (0-3.3) KJ-Ijq-W-Type Natriuretic Peptide 133 pg/mL (0-124) Total Protein 6.6 g/dL (6.4-8.2) Albumin 3.7 g/dL (3.4-5.0) Albumin/Globulin Ratio 1.3 (1.0-1.7) Lipase 115 U/L (73-393) SARS-CoV-2 Antigen (Rapid) Negative (NEGATIVE) Test 04/10/21 04:15 White Blood Count 6.1 x10^3/uL (4.0-11.0) Red Blood Count 4.14 x10^6/uL (3.50-5.40) Hemoglobin 13.1 g/dL (12.0-15.5) Hematocrit 38.3 % (36.0-47.0) Mean Corpuscular Volume 93 fL (79-100) Mean Corpuscular Hemoglobin 32 pg (25-35) Mean Corpuscular Hemoglobin Concent 34 g/dL (31-37) Red Cell Distribution Width 13.0 % (11.5-14.5) Platelet Count 280 x10^3/uL (140-400) Neutrophils (%) (Auto) 55 % (31-73) Lymphocytes (%) (Auto) 35 % (24-48) Monocytes (%) (Auto) 10 % (0-9) Eosinophils (%) (Auto) 0 % (0-3) Basophils (%) (Auto) 1 % (0-3) Neutrophils # (Auto) 3.3 x10^3/uL (1.8-7.7) Lymphocytes # (Auto) 2.1 x10^3/uL (1.0-4.8) Monocytes # (Auto) 0.6 x10^3/uL (0.0-1.1) Eosinophils # (Auto) 0.0 x10^3/uL (0.0-0.7) Basophils # (Auto) 0.0 x10^3/uL (0.0-0.2) Sodium Level 142 mmol/L (136-145) Potassium Level 4.2 mmol/L (3.5-5.1) Chloride Level 107 mmol/L (98-107) Carbon Dioxide Level 27 mmol/L (21-32) Anion Gap 8 (6-14) Blood Urea Nitrogen 12 mg/dL (7-20) Creatinine 0.8 mg/dL (0.6-1.0) Estimated GFR (Cockcroft-Gault) 82.1 Glucose Level 106 mg/dL (70-99) Calcium Level 8.9 mg/dL (8.5-10.1) Phosphorus Level 4.4 mg/dL (2.6-4.7) Magnesium Level 2.3 mg/dL (1.8-2.4) Troponin I Quantitative 0.153 ng/mL (0.000-0.055) Physical Exam HEENT: Neck Supple W Full Motion Chest: Symmetric LUNGS: Clear to Auscultation Heart: S1S2, RRR (SR) Abdomen: Soft N/T Extremities: No Edema, No Calf Tenderness Neurology: alert, oriented, follow commands Assessment Assessment HPI: This is a pleasant 35 yo female admitted for complains of chest pain. Reports of burning chest discomfort that goes even up to her nostrils. No SOA. No nausea or vomiting. Has been coughing but no flu like symptoms. No loss of taste or smell. she has not been vaccinated for covid-19 and she has been tested negative recently. No palpitations on diaphoresis. She has had extensive cardiac workup recently as noted below and came to ER again few days after that and her BP was noted to be high which at this time is controlled. Her trop was noted to be slightly elevated but no noted changes to her EKG. No recent falls or injury. Denies recent illicit drug use. She did tell me that she was tested + for the flu prior to her [facility] with flu symptoms associated with that. Assessment. 1. Atypical chest pain: described as burning up to her nose sometimes. Covid-19 neg so far. No arrhythmias 2. HTN: controlled 3. Possible GERD exacerbation 4. Mild troponin elevation: trop peaked at 0.15. EKG Sr no acute changes. Suspect demand mediated. Recent LHC unremarkable. Viral myocarditis would be part of the differential 5. Morbid obesity 6. Hx of meth use: Last + 03/26/2021. Tox screen is negative this time and denies using any illicit drugs from that time Recommendations 1. Continue home BP regimen. ASA 2. x1 gi cocktail, start on PPI 3. No further cardiac workup but will need to consider for outpt CMR 4. Follow up as scheduled April 23 at 1030 AM. <Conclusion> The left ventricle is normal size. The systolic function is normal on a technically difficult study. The LV Ejection Fraction is estimated at 50%. There are no regional wall motion abnormalities. There is mild concentric left ventricular hypertrophy. Doppler and Color Flow revealed no significant aortic regurgitation. There is no significant aortic valvular stenosis. Doppler and Color-flow revealed trace mitral regurgitation. Doppler and Color Flow revealed trace tricuspid regurgitation with an estimated PAP of 27 mmHg. DATE: 03/27/21 [id number] FINDINGS: ======= Aorta: 110/80 LVEDP: 9 mmHg Left ventriculogram: Ejection fraction 55% Normal wall motion without any evidence of aortic or mitral insufficiency. Coronary angiography: LM:Large caliber vessel with normal angiographic appearance. LAD: Large caliber vessel with normal angiographic appearance. LCx: Large caliber dominant vessel with normal angiographic appearance. RCA: Small caliber non-dominant vessel with normal angiographic appearance. CLOSURE: At case completion the right radial sheath was removed and a Terumo radial band was applied with 11 mL of air. Hemostasis was achieved. COMPLICATIONS: No acute complications noted Conclusion 1. Normal left sided filling pressures. 2. Normal LV systolic function. EF 55% 3. Normal angiographic appearance of the coronary arteries. Recommendations Aggressive Medical Therapy DATE: 03/27/21 [id number] Justicifation of Admission Dx: Justifications for Admission: Justification of Admission Dx: Yes TED HAYES MD 04/10/21 1710: CARDIO Progress Notes Plan Plan Patient seen and examined. Agree with above nurse practitioner note. Differential diagnosis includes musculoskeletal pain versus pericarditis. Consider colchicine upon discharge. Supportive care for now. ANKUR MAYA APRN Apr 10, 2021 09:53 TED HAYES MD Apr 10, 2021 17:10
[2021-04-10 10:38] VITALS: BP 129/88
--- NOTE | 2021-04-10 11:02 | EKG ---
[facility] [address] [place] [address] Test Date: 2021-04-10 Test Time: 11:00:42 Pat Name: SHAHAB TALBERT Department: Room: [facility] Gender: F Pharmacy Services Representative: JOESPH : 1985 Requested By: ANKUR MAYA Order Number: [id number] Reading MD: Viral Betts MD Measurements Intervals Rescue Rate: 99 P: 42 PA: 146 QRS: 38 QRSD: 78 T: 26 QT: 340 QTc: 442 Interpretive Statements SR Electronically Signed On 04-10-2021 14:54:12 CDT by Viral Betts MD
--- NOTE | 2021-04-10 11:59 | NUR ---
SS following for discharge planning. SS reviewed pt chart and discussed with pt RN. Pt is from home and is currently on room air. COVID19 negative. Cardiology consulted. Discharge plan is currently to home when medically ready for discharge. SS will continue to follow for discharge planning.
[2021-04-10] MEDS ORDERED: ONDANSETRON ODT 4 MG TAB.RAPDIS. PO PRN (13:00)
[2021-04-10] MEDS ORDERED: KETOROLAC 15 MG/ML VIAL. IVP ONE (13:00)
[2021-04-10] MEDS ORDERED: AMOXICILLIN/K CLAV 875/125MG TABLET. PO SCH (13:30)
[2021-04-10 14:20] VITALS: BP 128/80
--- NOTE | 2021-04-10 14:50 | NUR ---
Patient sleeping majority of the day but states she is still in pain. Patient at times cannot stay awake while RN in room.
[2021-04-10] MEDS ORDERED: NITR0.4T24 SL (15:24)
[2021-04-10] MEDS ORDERED: DOXY100C3 PO (15:24)
--- NOTE | 2021-04-10 15:27 | PDOC3 ---
[facility]-Discharge Summary Date of Admission: Date of Admission: Apr 09, 2021 Date of Discharge: Date of Discharge: Apr 10, 2021 Admission Diagnosis: Problems: (1) Chest pain (2) Hypertension Procedures: Procedures: Cardiology Hospital Course: Hospital Course: Patient is a 36-year-old female with past medical history of non-STEMI seen 2 weeks ago and now left heart cath completed that was negative and no interventions were done. She presents again today with chest pain that was similar in her substernal region compared to last time but this time it occurred while she was working. She states that she does have history of panic attacks but this does not feel like that. But right after this she says that she does have anxiety because she saw her dad of a heart attack when she was 19 years old and she has been seen in the ED before and she thought was a heart attack. She does have a history of methamphetamine abuse and THC abuse. Patient denies any fevers, shortness of breath, abdominal pain, syncope, palpitation, dysuria, diarrhea or bloody stools. Rest of history obtained from discussion with the ED physician, please read her HPI below 35-year-old female presenting via EMS from her primary care provider's office for chest pain. Patient has a history significant for an NSTEMI approximately 2 weeks ago. She was seen at [facility] and diagnosed with NSTEMI, she admitted to relapse of methamphetamine use just prior to symptom onset at that time. She was transferred here and had a negative heart cath with a normal EF. Patient denies having any drug use recently. States that she has had these chest pains off and on since that initial episode but today it was more intense. States she took one of her hydrocodone that she had from her previous discharge as well as 325 mg aspirin prior to seeing her primary care provider. In the office there was some concern for her chest pain symptoms as well as ST elevation in some anterior leads on her EKG. Patient states the pain is in her left chest and radiates to her neck and her arm. Is worse with palpation, and states that her previous chest pain is worse with palpation. States she continues to smoke cigarettes, last marijuana use 1 to 2 weeks ago. States she has been avoiding her Adderall for ADHD caffeine, and not use any illicit substances other than marijuana. Has a history of hypertension and is on 3 medications. Hypertension started when she had preeclampsia when she was 2 years ago. Patient's father of an DC at age 52. Patient was given 1 sublingual nitroglycerin by EMS that brought her chest pain from a 4 to a 0, she is currently chest pain-free in the emergency department. 04/10 Patient seen at the bedside this morning complaining of sinus and back pain. Improved with one-time Toradol. Evaluated by cardiology no need for any sort of intervention. Will discharge home today. Patient does report she gets frequent sinus infections and never finishes her antibiotics thus will give prescription for sinusitis treatment given her nasal pain and congestion. Disposition: Disposition/Orders: D/C to Home Activity: Activity: Resume previous activity Diet: Diet: Cardiac Medications: Home Meds Active Scripts Doxycycline Hyclate (DOXYCYCLINE HYCLATE) 100 Mg Capsule, 1 CAP PO BID for sinusitis, #28 CAP Prov:SHONDA BORGES MD 04/10/21 Nitroglycerin (NITROSTAT) 0.4 Mg Tab.subl, 0.4 MG SL PRN Q5MIN PRN for CHEST PAIN MDD 3 tablets, #30 TAB Prov:SHONDA BORGES MD 04/10/21 Metoprolol Succinate (METOPROLOL SUCCINATE ( XL )) 25 Mg Tab.er.24h, 2 TAB PO DAILY for hypertension for 30 Days, #60 TAB 0 Refills Prov:CLINT KAUR MD 03/30/21 Hydrocodone Bit/Acetaminophen (HYDROCODONE-APAP 10325 ) 1 Tab Tablet, 1 TAB PO PRN Q6HRS PRN for PAIN for 6 Days, #24 TAB 0 Refills Prov:RALPH SPRINGER MD 03/28/21 Reported Medications Hydrochlorothiazide (Hydrochlorothiazide) 25 Mg Tablet, 25 MG PO DAILY for , TAB 04/10/21 Alprazolam (ALPRAZOLAM) 0.5 Mg Tablet, 0.5 MG PO PRN Q6HRS PRN for ANXIETY / AGITATION, TAB 0 Refills 03/26/21 Scheduled Doxycycline Hyclate (Doxycycline Hyclate), 1 CAP PO BID Hydrochlorothiazide (Hydrochlorothiazide), 25 MG PO DAILY, (Reported) Metoprolol Succinate (Metoprolol Succinate ( Xl )), 2 TAB PO DAILY Scheduled PRN Alprazolam (Alprazolam), 0.5 MG PO PRN Q6HRS PRN for ANXIETY / AGITATION, (Reported) Hydrocodone Bit/Acetaminophen (Hydrocodone-Apap 10-325 ), 1 TAB PO PRN Q6HRS PRN for PAIN Nitroglycerin (Nitrostat), 0.4 MG SL PRN Q5MIN PRN for CHEST PAIN Justicifation of Admission Dx: Justifications for Admission: Justification of Admission Dx: Yes SHONDA BORGES MD Apr 10, 2021 15:27
--- NOTE | 2021-04-10 17:26 | NUR ---
Discharge Note: SHAHAB TLABERT [address] [place] [address] Discharge instructions and discharge home medications reviewed with Patient and a copy given. All questions have been answered and understanding verbalized. The following instructions and handouts were given: discharge instructions, follow ups, CP education, med list. Discontinued lines and drains: peripheral IVs intact. Patient discharged to Home or Self Care with Significant Other via [facility] at 1726.
[2021-04-11] MEDS ORDERED: PANTOPRAZOLE 40 MG TABLET.DR. PO SCH (07:30)
== END 2021-04-10 17:26 | disposition home or self-care (01) ==
LOC: ER 15:02 → ED HOLD 17:30 → 6 SOUTH 20:53
PROVIDERS: ADMIT Internal Medicine; ATTEND Internal Medicine
DX: R07.2 Precordial pain (principal); Z20.822 Contact with and (suspected) exposure to COVID-19; I25.2 Old myocardial infarction; F41.0 Panic disorder [episodic paroxysmal anxiety]; E66.01 Morbid (severe) obesity due to excess calories; F17.210 Nicotine dependence, cigarettes, uncomplicated; I10 Essential (primary) hypertension; F15.10 Other stimulant abuse, uncomplicated; F19.10 Other psychoactive substance abuse, uncomplicated; F41.9 Anxiety disorder, unspecified; Z82.49 Family history of ischemic heart disease and other diseases of the circulatory system
CPT/HCPCS: 36415; 71046; 80048; 80053; 80307; 81001; 81025; 82550; 83690; 83735; 83874; 83880; 84100; 84484; 85025; 85379; 86140; 87086; 87426; 93005; 96361; 96372; 96374; 96375; 96376; 99285; G0378; J1650; J1885; J2405; J3010; J7030; J7040; U0003; U0005; G0379

== ENCOUNTER 2021-09-09 11:13 | Observation (INO) | payer OTHER ==
[~2021-09-09] VITALS: Ht 162.6 cm; Wt 108.9 kg
[~2021-09-09 11:13] MED LIST changes: +DOXY100C3 PO; +HYDR25TA10 PO; +NITR0.4T24 SL
[2021-09-09] MEDS ORDERED: IV NORMAL SALINE 1000ML BAG 1,000 ML IV SCH (11:30)
--- NOTE | 2021-09-09 11:33 | PHYS DOC ---
Past Medical History Additional Past Medical Histor: preeclampsia Past Surgical History: Other Smoking Status: Current Every Day Smoker Alcohol Use: Occasionally General Adult EDM: Chief Complaint: CHEST PAIN HPI: HPI: Patient is a 36-year-old female who presents to the emergency department with generalized chest pain that started this morning. She rates the pain 8 out of 10. She states that it "feels cold" in her chest. She is also reporting bilateral jaw pain, sinus pressure and left arm pain. She reports nausea, lightheadedness, productive cough. She reports that the chest pain is worse with her cough. No alleviating factors. Patient denies vomiting, shortness of breath fevers. She reports that she has a history of elevated troponins and has had a heart catheterization at this hospital in March of last year, she states that the cath was normal and they told her she did not have a heart attack but her heart was under stress due to meth use. She reports that she took a full- strength aspirin prior to arrival. Other medical history involves hypertension and obesity. Review of Systems: Review of Systems: Constitutional: negative unless reported in HPI Eyes: negative unless reported in HPI HENT: negative unless reported in HPI Respiratory: negative unless reported in HPI Cardiovascular: negative unless reported in HPI GI: negative unless reported in HPI : negative unless reported in HPI Musculoskeletal: negative unless reported in HPI Integument: negative unless reported in HPI Neurologic: negative unless reported in HPI Endocrine: negative unless reported in HPI Lymphatic: negative unless reported in HPI Psychiatric: negative unless reported in HPI Heart Score: C/O Chest Pain: Yes HEART Score for Chest Pain: HEART Score for Chest Pain Response (Comments) Value History Moderately Suspicious 1 ECG Nonspecific Repolarizatio 1 Age < 45 0 Risk Factors >3 Risk Factors or Hx CAD 2 Troponin < Normal Limit 0 Total 4 Risk Factors: Risk Factors: DM, Current or recent (<one month) smoker, HTN, HLP, family history of CAD, obesity. Risk Scores: Score 0 - 3: 2.5% MACE over next 6 weeks - Discharge Home Score 4 - 6: 20.3% MACE over next 6 weeks - Admit for Clinical Observation Score 7 - 10: 72.7% MACE over next 6 weeks - Early Invasive Strategies Allergies: Allergies: Allergies Coded Allergies Type Severity Reaction Last Updated Verified No Known Drug Allergies 03/26/21 No Physical Exam: PE: Constitutional: Well developed, well nourished, no acute distress, non-toxic appearance. [] HENT: Normocephalic, atraumatic, bilateral external ears normal, oropharynx moist, no oral exudates, nose normal. [] Eyes: PERRL, EOMI, conjunctiva normal, no discharge. [] Neck: Normal range of motion, no tenderness, supple, no stridor. [] Cardiovascular:Heart rate regular rhythm, no murmur, chest pain is not reproducible with palpation [] Lungs & Thorax: Bilateral breath sounds clear to auscultation [] Abdomen: Bowel sounds normal, soft, no tenderness, no masses, no pulsatile masses. [] Skin: Warm, dry, no erythema, no rash. [] Back: Normal range of motion Extremities: No tenderness, no cyanosis, no clubbing, ROM intact, no edema. [] Neurologic: Alert and oriented X 3, normal motor function, normal sensory function, no focal deficits noted. [] Psychologic: Affect normal, judgement normal, mood normal. [] Current Patient Data: Labs: Laboratory Tests Test 09/09/21 11:53 09/09/21 12:54 09/09/21 13:07 09/09/21 13:12 White Blood Count 7.3 x10^3/uL Red Blood Count 4.59 x10^6/uL Hemoglobin 14.2 g/dL Hematocrit 41.6 % Mean Corpuscular Volume 91 fL Mean Corpuscular Hemoglobin 31 pg Mean Corpuscular Hemoglobin Concent 34 g/dL Red Cell Distribution Width 13.5 % Platelet Count 267 x10^3/uL Neutrophils (%) (Auto) 70 % Lymphocytes (%) (Auto) 19 % Monocytes (%) (Auto) 7 % Eosinophils (%) (Auto) 3 % Basophils (%) (Auto) 1 % Neutrophils # (Auto) 5.1 x10^3/uL Lymphocytes # (Auto) 1.4 x10^3/uL Monocytes # (Auto) 0.5 x10^3/uL Eosinophils # (Auto) 0.2 x10^3/uL Basophils # (Auto) 0.1 x10^3/uL Sodium Level 140 mmol/L Potassium Level 4.3 mmol/L Chloride Level 104 mmol/L Carbon Dioxide Level 24 mmol/L Anion Gap 12 Blood Urea Nitrogen 17 mg/dL Creatinine 0.7 mg/dL Estimated GFR (Cockcroft-Gault) 95.2 BUN/Creatinine Ratio 24 Glucose Level 88 mg/dL Calcium Level 8.7 mg/dL Total Bilirubin 0.8 mg/dL Aspartate Amino Transf (AST/SGOT) 15 U/L Alanine Aminotransferase (ALT/SGPT) 31 U/L Alkaline Phosphatase 99 U/L Troponin I High Sensitivity 19 ng/L Total Protein 7.6 g/dL Albumin 3.9 g/dL Albumin/Globulin Ratio 1.1 Urine Collection Type Unknown Urine Color Yellow Urine Clarity Clear Urine pH 6.0 Urine Specific [place] 1.020 Urine Protein Negative mg/dL Urine Glucose (UA) Negative mg/dL Urine Ketones (Stick) Trace mg/dL Urine Blood Negative Urine Nitrite Negative Urine Bilirubin Negative Urine Urobilinogen Dipstick 0.2 mg/dL Urine Leukocyte Esterase Negative Urine RBC 0 /HPF Urine WBC 0 /HPF Urine Squamous Epithelial Cells Few /LPF Urine Bacteria Moderate /HPF Urine Mucus Slight /LPF Bedside Urine HCG, Qualitative Hcg negative Current Medications Medications (Trade) Dose Ordered Sig/Benny Route PRN Reason Start Time Stop Time Status Last Admin Dose Admin Nitroglycerin (Nitrostat) 0.4 mg PRN Q5MIN PRN SL CP RATING > 08/2509/09/21 11:30 09/10/21 11:29 09/09/21 12:20 Sodium Chloride 1,000 ml @ 1,000 mls/hr Q1H IV 09/09/21 11:30 09/09/21 12:29 DC 09/09/21 12:03 Ketorolac Tromethamine (Toradol 30mg Vial) 30 mg 1X ONCE IVP 09/09/21 12:15 09/09/21 12:16 DC 09/09/21 12:17 EKG: EKG: EKG performed by ER 02/23/2021 shows sinus rhythm with a rate of 81, diffuse mild ST segment elevation less than 1 mm, no STEMI read by Dr. Sebastian. [] Radiology/Procedures: Radiology/Procedures: []PROCEDURE: PORTABLE CHEST 1V EXAM: Chest, single view. HISTORY: Chest pain. COMPARISON: 04/09/2021 FINDINGS: A frontal view of the chest is obtained. There is no infiltrate, pleural effusion or pneumothorax. The heart is normal in size. IMPRESSION: No acute pulmonary finding. Electronically signed by: Barbie Quiñonez MD (09/09/2021 11:48 AM) [id number] DICTATED and SIGNED BY: BARBIE QUIÑONEZ MD DATE: 09/09/21 [id number] Course & Med Decision Making: Course & Med Decision Making Pertinent Labs and Imaging studies reviewed. (See chart for details) [] Patient presents to the emergency department for chest pain that started this morning. Chest pain radiates to her left arm and she is having bilateral jaw pain. Chest pain is associated with nausea and lightheadedness. Patient does have a productive cough and the chest pain is worse with cough. She states that nothing makes the pain better. She has a history of COVID-19 diagnosed a week and a half ago. Patient does have a history of elevated troponins and had a catheterization in March, cath was clear and they told her elevated trops were due to meth use. CBC, CMP, troponin negative. Patient does have a heart score of 4 she does have nonspecific changes on her EKG and has a history of obesity, smoking, hypertension. Upon reevaluation of patient, she is sleeping in the ER bed and in no acute distress. I discussed admission with patient for serial troponins and cardiology consultation in which she declined stating that she has no one to watch her kids. I spoke with patient and she would like to be admitted at this time. I discussed patient's case with Ginny cardiology and he will be consulted. I discussed case with Dr. Almonte and he agreed to admit the patient under his services. ER bridge orders placed. Apolinar Disclaimer: Apolinar Disclaimer: This electronic medical record was generated, in whole or in part, using a voice recognition dictation system. Departure Departure Impression: Primary Impression: Chest pain Qualified Codes: R07.9 - Chest pain, unspecified Disposition: ADMITTED INPATIENT Admitting Physician: IVY Condition: GOOD Referrals: ARPAN GALLEGOS MD (PCP) TED HAYES MD, KIANA L APRN Sep 09, 2021 11:33
--- NOTE | 2021-09-09 11:50 | RAD ---
EXAM: Chest, single view. HISTORY: Chest pain. COMPARISON: 04/09/2021 FINDINGS: A frontal view of the chest is obtained. There is no infiltrate, pleural effusion or pneumo thorax. The heart is normal in size. IMPRESSION: No acute pulmonary finding. Electronically signed by: Barbie Betts MD (09/09/2021 11:48 AM) [id number]
[2021-09-09] MEDS: NITROGLYCERIN SUBLINGUAL 0.4 MG BOTTLE OF 25. SL PRN ×2 (12:01→12:20)
[2021-09-09 12:06] LABS: BASO # 0.1 x10^3/uL (0.0-0.2); BASO % 1 % (0-3); EOS # 0.2 x10^3/uL (0.0-0.7); EOS % 3 % (0-3); HEMATOCRIT 41.6 % (36.0-47.0); HEMOGLOBIN 14.2 g/dL (12.0-15.5); LYMPH # 1.4 x10^3/uL (1.0-4.8); LYMPH % 19 % (24-48); MEAN CORPUSCULAR HEMOGLOBIN 31 pg (25-35); MEAN CORPUSCULAR HGB CONC 34 g/dL (31-37); MEAN CORPUSCULAR VOLUME 91 fL (79-100); MONO # 0.5 x10^3/uL (0.0-1.1); MONO % 7 % (0-9); NEUT # 5.1 x10^3/uL (1.8-7.7); NEUT % 70 % (31-73); PLATELET COUNT 267 x10^3/uL (140-400); RED BLOOD COUNT 4.59 x10^6/uL (3.50-5.40); RED CELL DISTRIBUTION WIDTH 13.5 % (11.5-14.5); WHITE BLOOD COUNT 7.3 x10^3/uL (4.0-11.0)
[2021-09-09] MEDS ORDERED: KETOROLAC 30 MG/ML VIAL. IVP ONE (12:15)
--- NOTE | 2021-09-09 13:29 | EKG ---
[facility] [address] [place] [address] Test Date: 2021-09-09 Test Time: 11:21:27 Pat Name: SHAHAB TALBERT Department: Room: Gender: F Quality Assurance Consultant: : [id number] Requested By: NATHALIE MONTIEL Order Number: [id number] Reading MD: Ashish Wilson Measurements Intervals [place] Rate: 81 P: 21 MI: 146 QRS: 22 QRSD: 82 T: 15 QT: 370 QTc: 435 Interpretive Statements SINUS RHYTHM Electronically Signed On 09-10-2021 19:34:36 BULB INSPECTOR by Ashish Wilson
[2021-09-09 13:30] LABS: BILIRUBIN,URINE NEGATIVE (NEG); CLARITY,URINE CLEAR; COLOR,URINE YELLOW; NITRITE,URINE NEGATIVE (NEG); PROTEIN,URINE NEGATIVE (NEG-TRACE); UROBILINOGEN,URINE 0.2 mg/dL (0.2 mg/dL)
[2021-09-09 13:33] LABS: CALCIUM 8.7 mg/dL (8.5-10.1); CREATININE 0.7 mg/dL (0.6-1.0); GFR 95.2; POTASSIUM 4.3 mmol/L (3.5-5.1)
[2021-09-09 13:38] LABS: ALBUMIN 3.9 g/dL (3.4-5.0); ALBUMIN/GLOBULIN RATIO 1.1 (1.0-1.7); TOTAL BILIRUBIN 0.8 mg/dL (0.2-1.0); TOTAL PROTEIN 7.6 g/dL (6.4-8.2)
[2021-09-09 13:45] LABS: RBC,URINE 0 /HPF (0-2); WBC,URINE 0 /HPF (0-4)
[2021-09-09 13:46] LABS: BACTERIA,URINE MODERATE /HPF (0-FEW)
[2021-09-09] MEDS ORDERED: MORPHINE SULFATE 2 MG/ML INJ. IVP PRN (15:00)
[2021-09-09] MEDS ORDERED: ACETAMINOPHEN 325 MG TABLET. PO ONE (16:45)
[2021-09-09 17:39] VITALS: BP 151/90
--- NOTE | 2021-09-09 18:57 | HP ---
DATE OF SERVICE: 09/09/2021 ADMIT DATE: 09/09/2021 CHIEF COMPLAINT: Chest discomfort. HISTORY OF PRESENT ILLNESS: The patient is a pleasant 36-year-old female who presents to the ER today with chest discomfort. She has had problems with methamphetamine abuse and tobacco abuse. She states she still smokes a pack and a half a day. She used meth just within the past 24 hours. While in the ER, we noticed that her troponins are slightly high at 58. She seems to have some pleuritic chest pain. I discussed the case with ER physician. We are going to admit the patient and consult Cardiology and give her Toradol for her pleurisy. PAST MEDICAL HISTORY: Methamphetamine abuse, tobacco abuse, preeclampsia, cardiac cath that was apparently negative. ALLERGIES: None. FAMILY HISTORY: Coronary artery disease. Her dad at 53. SOCIAL HISTORY: She drinks socially. She smokes a pack and a half a day. She still uses methamphetamine, but trying to quit. She works at the [employer] in [place]. MEDICATIONS: Reviewed, please refer to the MRAD. REVIEW OF SYSTEMS: GENERAL: No history of weight change, weakness or fevers. SKIN: No bruising, hair changes or rashes. EYES: No blurred, double or loss of vision. NOSE AND THROAT: No history of nosebleeds, hoarseness or sore throat. HEART: She complains of chest pain, especially with inspiration. LUNGS: Denies cough, hemoptysis, wheezing or shortness of breath. GASTROINTESTINAL: Denies changes in appetite, nausea, vomiting, diarrhea or constipation. GENITOURINARY: No history of frequency, urgency, hesitancy or nocturia. NEUROLOGIC: Denies history of numbness, tingling, tremor or weakness. PSYCHIATRIC: No history of panic, anxiety or depression. ENDOCRINE: No history of heat or cold intolerance, polyuria or polydipsia. EXTREMITIES: Denies muscle weakness, joint pain, pain on walking or stiffness. PHYSICAL EXAMINATION: VITALS: Within normal limits and are stable. GENERAL: No apparent distress. Alert and oriented. HEENT: Normal cephalic atraumatic, external auditory canals are patent. EYES: Extraocular muscles are intact, pupils are equally round and reactive to light and accommodation. MUSCULOSKELETAL: Well developed, well nourished, good range of motion. ENDOCRINE: No thyromegaly was palpated. LYMPHATICS: No cervical chain or axillary nodes were noted. HEMATOPOIETIC: No bruising. NECK: Supple, no JVD, no thyromegaly was noted. LUNGS: Clear to auscultation in all lung acuna without rhonchi or wheezing. HEART: RRR, S1, S2 present. Peripheral pulses intact, no obvious murmurs were noted. ABDOMEN: Soft, nontender. Positive bowel sounds no organomegaly, normal bowel sounds. EXTREMITIES: She has trace edema. NEUROLOGIC: Normal speech, normal tone. A and O x 3, moves all extremities, no obvious focal deficits. PSYCHIATRIC: Normal affect, normal mood. Stable. SKIN: No ulcerations or rashes, good skin turgor, no jaundice. VASCULAR: Good capillary refill, neurovascular bundle appears to be intact. LABORATORY DATA: Hematology is normal. Electrolytes are normal. Troponin slightly high at 58. Urinalysis negative. Drug screen is pending. Chest x-ray negative. ASSESSMENT AND PLAN: Chest pain and probable pleurisy in the middle-aged female, who has been having issues with methamphetamine abuse and smokes. The patient will be admitted. We will check serial enzymes, serial EKGs. Consult Cardiology. Cardiac monitoring. P.r.n. Toradol. Home meds. Deep venous thrombosis prophylaxis. Full code. YI DR: ISADORA/spring TID: [id number]
[2021-09-09 19:41] VITALS: BP 142/97
[2021-09-09] MEDS ORDERED: ALPRAZolam 0.5 MG TABLET PO PRN (20:00)
[2021-09-09] MEDS: KETOROLAC 30 MG/ML VIAL. IV PRN (20:17)
[2021-09-09] MEDS: ZOLPIDEM 5 MG TABLET. PO PRN (20:22)
[2021-09-09 20:45] LABS: AMPHETAMINE/METHAMPHETAMINE NEG (NEG); BARBITURATES NEG (NEG); BENZODIAZEPINES NEG (NEG); CANNABINOIDS NEG (NEG); COCAINE NEG (NEG); METHADONE NEG (NEG); OPIATES NEG (NEG); PHENCYCLIDINE NEG (NEG)
[2021-09-09 22:31] VITALS: BP 136/72
[2021-09-10 02:43] VITALS: BP 137/81
[2021-09-10] MEDS: HYDROcodone/APAP 10/325 1 TAB TABLET PO PRN ×3 (04:55→21:14)
[2021-09-10] MEDS ORDERED: ONDANSETRON ODT 4 MG TAB.RAPDIS. PO PRN (05:00)
[2021-09-10 06:02] LABS: BASO % 0 % (0-3); EOS % 0 % (0-3); HEMATOCRIT 39.6 % (36.0-47.0); HEMOGLOBIN 13.7 g/dL (12.0-15.5); LYMPH # 1.6 x10^3/uL (1.0-4.8); LYMPH % 29 % (24-48); MEAN CORPUSCULAR HEMOGLOBIN 32 pg (25-35); MEAN CORPUSCULAR HGB CONC 35 g/dL (31-37); MEAN CORPUSCULAR VOLUME 91 fL (79-100); MONO # 0.7 x10^3/uL (0.0-1.1); MONO % 12 % (0-9); NEUT # 3.2 x10^3/uL (1.8-7.7); NEUT % 59 % (31-73); PLATELET COUNT 299 x10^3/uL (140-400); RED BLOOD COUNT 4.36 x10^6/uL (3.50-5.40); RED CELL DISTRIBUTION WIDTH 13.7 % (11.5-14.5); WHITE BLOOD COUNT 5.5 x10^3/uL (4.0-11.0)
[2021-09-10 06:40] LABS: ALBUMIN 3.3 g/dL (3.4-5.0); ALBUMIN/GLOBULIN RATIO 0.9 (1.0-1.7); CALCIUM 8.3 mg/dL (8.5-10.1); CREATININE 0.9 mg/dL (0.6-1.0); GFR 71.3; POTASSIUM 3.8 mmol/L (3.5-5.1); TOTAL BILIRUBIN 0.8 mg/dL (0.2-1.0); TOTAL PROTEIN 6.9 g/dL (6.4-8.2)
[2021-09-10 07:00] VITALS: BP 117/60
[2021-09-10] MEDS: METOPROLOL SUCC 24HR ER 50 MG TAB.ER.24H. PO SCH (09:13)
[2021-09-10] MEDS: ONDANSETRON ODT 4 MG TAB.RAPDIS. PO PRN ×3 (10:42→18:48)
[2021-09-10 10:54] VITALS: BP 115/59
--- NOTE | 2021-09-10 10:54 | NUR ---
SS following for discharge planning. SS reviewed pt chart and discussed with pt RN. Pt is from home and is currently on room air. COVID19 negative. Cardiology consulted. SS will continue to follow for discharge planning.
[2021-09-10] MEDS ORDERED: MORPHINE SULFATE 2 MG/ML INJ. IVP ONE (11:00)
--- NOTE | 2021-09-10 11:51 | PDOC ---
[facility] PROGRESS NOTE Date of Service DOS: DATE: 09/10/21 TIME: 11:49 Chief Complaint Chief Complaint Chest pain and probable pleurisy in the middle-aged female, who has been having issues with methamphetamine abuse and smokes. The patient will be admitted. We will check serial enzymes, serial EKGs. Consult Cardiology --> no cardiac intervention this admission. Cardiac monitoring. Home meds. Deep venous thrombosis prophylaxis. Full code. History of Present Illness History of Present Illness 09/10/21 Patient evaluated examined at bedside. She was resting in bed deformity chest pain had improved. Was still feeling a very bad headache. Said her head was pounding. Also c/o weakness in her arms and legs. Still waiting on Covid PCR. She did have Covid 2 weeks ago but has still been around a lot of people with Covid. Vitals/I&O Vitals/I&O: Vital Signs Date Time Temp Pulse Resp B/P (MAP) Pulse Ox O2 Delivery O2 Flow Rate FiO2 09/10/21 11:28 18 09/10/21 10:54 98.5 103 115/59 (77) 97 Room Air 98.5 I & O 09/09/21 09/09/21 09/10/21 15:00 23:00 07:00 Intake Total 1000 ml 300 ml 0 ml Output Total 500 ml Balance 1000 ml -200 ml 0 ml Physical Exam General: Alert, Oriented X3, Cooperative Heart: Regular rate, Normal S1, Normal S2 Lungs: Clear Abdomen: Normal bowel sounds, Soft, No tenderness Extremities: No edema, Normal pulses Skin: No significant lesion Labs Labs: Laboratory Tests Test 09/09/21 11:53 09/09/21 12:54 09/09/21 13:07 09/09/21 13:12 White Blood Count 7.3 x10^3/uL (4.0-11.0) Red Blood Count 4.59 x10^6/uL (3.50-5.40) Hemoglobin 14.2 g/dL (12.0-15.5) Hematocrit 41.6 % (36.0-47.0) Mean Corpuscular Volume 91 fL (79-100) Mean Corpuscular Hemoglobin 31 pg (25-35) Mean Corpuscular Hemoglobin Concent 34 g/dL (31-37) Red Cell Distribution Width 13.5 % (11.5-14.5) Platelet Count 267 x10^3/uL (140-400) Neutrophils (%) (Auto) 70 % (31-73) Lymphocytes (%) (Auto) 19 % (24-48) Monocytes (%) (Auto) 7 % (0-9) Eosinophils (%) (Auto) 3 % (0-3) Basophils (%) (Auto) 1 % (0-3) Neutrophils # (Auto) 5.1 x10^3/uL (1.8-7.7) Lymphocytes # (Auto) 1.4 x10^3/uL (1.0-4.8) Monocytes # (Auto) 0.5 x10^3/uL (0.0-1.1) Eosinophils # (Auto) 0.2 x10^3/uL (0.0-0.7) Basophils # (Auto) 0.1 x10^3/uL (0.0-0.2) Sodium Level 140 mmol/L (136-145) Potassium Level 4.3 mmol/L (3.5-5.1) Chloride Level 104 mmol/L (98-107) Carbon Dioxide Level 24 mmol/L (21-32) Anion Gap 12 (6-14) Blood Urea Nitrogen 17 mg/dL (7-20) Creatinine 0.7 mg/dL (0.6-1.0) Estimated GFR (Cockcroft-Gault) 95.2 BUN/Creatinine Ratio 24 (6-20) Glucose Level 88 mg/dL (70-99) Calcium Level 8.7 mg/dL (8.5-10.1) Total Bilirubin 0.8 mg/dL (0.2-1.0) Aspartate Amino Transf (AST/SGOT) 15 U/L (15-37) Alanine Aminotransferase (ALT/SGPT) 31 U/L (14-59) Alkaline Phosphatase 99 U/L (46-116) Troponin I High Sensitivity 19 ng/L (4-50) Total Protein 7.6 g/dL (6.4-8.2) Albumin 3.9 g/dL (3.4-5.0) Albumin/Globulin Ratio 1.1 (1.0-1.7) Urine Collection Type Unknown Urine Color Yellow Urine Clarity Clear Urine pH 6.0 (<5.0-8.0) Urine Specific [place] 1.020 (1.000-1.030) Urine Protein Negative mg/dL (NEG-TRACE) Urine Glucose (UA) Negative mg/dL (NEG) Urine Ketones (Stick) Trace mg/dL (NEG) Urine Blood Negative (NEG) Urine Nitrite Negative (NEG) Urine Bilirubin Negative (NEG) Urine Urobilinogen Dipstick 0.2 mg/dL (0.2 mg/dL) Urine Leukocyte Esterase Negative (NEG) Urine RBC 0 /HPF (0-2) Urine WBC 0 /HPF (0-4) Urine Squamous Epithelial Cells Few /LPF Urine Bacteria Moderate /HPF (0-FEW) Urine Mucus Slight /LPF Bedside Urine HCG, Qualitative Hcg negative (Negative) Test 09/09/21 16:18 09/09/21 20:31 09/10/21 05:05 09/10/21 10:02 Troponin I High Sensitivity 58 ng/L (4-50) 118 ng/L (4-50) Urine Opiates Screen Neg (NEG) Urine Methadone Screen Neg (NEG) Urine Barbiturates Neg (NEG) Urine Phencyclidine Screen Neg (NEG) Urine Amphetamine/Methamphetamine Neg (NEG) Urine Benzodiazepines Screen Neg (NEG) Urine Cocaine Screen Neg (NEG) Urine Cannabinoids Screen Neg (NEG) Urine Ethyl Alcohol Neg (NEG) White Blood Count 5.5 x10^3/uL (4.0-11.0) Red Blood Count 4.36 x10^6/uL (3.50-5.40) Hemoglobin 13.7 g/dL (12.0-15.5) Hematocrit 39.6 % (36.0-47.0) Mean Corpuscular Volume 91 fL (79-100) Mean Corpuscular Hemoglobin 32 pg (25-35) Mean Corpuscular Hemoglobin Concent 35 g/dL (31-37) Red Cell Distribution Width 13.7 % (11.5-14.5) Platelet Count 299 x10^3/uL (140-400) Neutrophils (%) (Auto) 59 % (31-73) Lymphocytes (%) (Auto) 29 % (24-48) Monocytes (%) (Auto) 12 % (0-9) Eosinophils (%) (Auto) 0 % (0-3) Basophils (%) (Auto) 0 % (0-3) Neutrophils # (Auto) 3.2 x10^3/uL (1.8-7.7) Lymphocytes # (Auto) 1.6 x10^3/uL (1.0-4.8) Monocytes # (Auto) 0.7 x10^3/uL (0.0-1.1) Eosinophils # (Auto) 0.0 x10^3/uL (0.0-0.7) Basophils # (Auto) 0.0 x10^3/uL (0.0-0.2) Sodium Level 138 mmol/L (136-145) Potassium Level 3.8 mmol/L (3.5-5.1) Chloride Level 103 mmol/L (98-107) Carbon Dioxide Level 25 mmol/L (21-32) Anion Gap 10 (6-14) Blood Urea Nitrogen 14 mg/dL (7-20) Creatinine 0.9 mg/dL (0.6-1.0) Estimated GFR (Cockcroft-Gault) 71.3 BUN/Creatinine Ratio 16 (6-20) Glucose Level 107 mg/dL (70-99) Calcium Level 8.3 mg/dL (8.5-10.1) Total Bilirubin 0.8 mg/dL (0.2-1.0) Aspartate Amino Transf (AST/SGOT) 9 U/L (15-37) Alanine Aminotransferase (ALT/SGPT) 21 U/L (14-59) Alkaline Phosphatase 79 U/L (46-116) Total Protein 6.9 g/dL (6.4-8.2) Albumin 3.3 g/dL (3.4-5.0) Albumin/Globulin Ratio 0.9 (1.0-1.7) SARS-CoV-2 Antigen (Rapid) Negative (NEGATIVE) Assessment and Plan Assessmemt and Plan Problems Medical Problems: (1) Chest pain Status: Acute Comment Review of Relevant I have reviewed the following items preston (where applicable) has been applied. Medications: Current Medications Medications (Trade) Dose Ordered Sig/Benny Route PRN Reason Start Time Stop Time Status Last Admin Dose Admin Ketorolac Tromethamine (Toradol 30mg Vial) 30 mg 1X ONCE IVP 09/09/21 12:15 09/09/21 12:16 DC 09/09/21 12:17 Acetaminophen (Tylenol) 650 mg 1X ONCE PO 09/09/21 16:45 09/09/21 16:46 DC 09/09/21 16:47 Ketorolac Tromethamine (Toradol 30mg Vial) 30 mg PRN Q6HRS PRN IV INFLAMMATION 09/09/21 18:45 09/14/21 18:44 09/09/21 20:17 Acetaminophen/ Hydrocodone Bitart (Lortab 10/325) 1 tab PRN Q6HRS PRN PO PAIN 09/09/21 20:00 09/10/21 04:55 Metoprolol Succinate (Toprol Xl) 50 mg DAILY PO 09/10/21 09:00 09/10/21 09:13 Zolpidem Tartrate (Ambien) 5 mg PRN QHS PRN PO INSOMNIA 09/09/21 20:00 09/09/21 20:22 Ondansetron HCl (Zofran Odt) 4 mg PRN Q6HRS PRN PO NAUSEA/VOMITING 09/10/21 05:00 09/10/21 10:13 DC 09/10/21 05:06 Ondansetron HCl (Zofran Odt) 4 mg PRN Q4HRS PRN PO NAUSEA/VOMITING 09/10/21 10:15 09/10/21 10:42 Morphine Sulfate (Morphine Sulfate) 2 mg 1X ONCE IVP 09/10/21 11:00 09/10/21 11:01 DC 09/10/21 10:58 Justifications for Admission Other Justification SHONDA BORGES MD Sep 10, 2021 11:51
--- NOTE | 2021-09-10 12:23 | PDOC2 ---
ANKUR MAYA PHOTOGRAPH PRINTER 09/10/21 1223: CARDIAC CONSULT DATE OF CONSULT Date of Consult DATE: 09/10/21 TIME: 12:06 REASON FOR CONSULT Reason for Consult: Chest pain REFERRING PHYSICIAN Referring Physician: Tho SOURCE Source: Chart review, Patient HISTORY OF PRESENT ILLNESS HISTORY OF PRESENT ILLNESS This is a pleasant 36 yo female admitted for complains of chest pain. Reports that this is across her chest like freezing feeling. No SOA. She was tested positive again for covid-19 2 weeks ago and unvaccinated and has had covid-19 last year as well. 2 weeks ago she started losing her smell and has progressed with throbbing MCDOWELL, vertigo, pain when moving her jaw and nasal congestion with cough. Sometimes some nausea but no recorded fever and has been having generalized weakness. She could not stay awake the 2 days ago so she went ahead and to took her adderral which she has not taken in a while. She has had recent LHC which did not show any significant CAD. PAST MEDICAL HISTORY Cardiovascular: HTN, Other (NSTEMI) GI: GERD Psych: Anxiety Infectious disease: Other (covid-19) FAMILY HISTORY Family History noncontributory SOCIAL HISTORY Smoke: <1 pack per day ALCOHOL: none Drugs: Other (hx of meth use) Lives: with Family CURRENT MEDICATIONS CURRENT MEDICATIONS Current Medications Medications (Trade) Dose Ordered Sig/Benny Route PRN Reason Start Time Stop Time Status Last Admin Dose Admin Ketorolac Tromethamine (Toradol 30mg Vial) 30 mg 1X ONCE IVP 09/09/21 12:15 09/09/21 12:16 DC 09/09/21 12:17 Acetaminophen (Tylenol) 650 mg 1X ONCE PO 09/09/21 16:45 09/09/21 16:46 DC 09/09/21 16:47 Ketorolac Tromethamine (Toradol 30mg Vial) 30 mg PRN Q6HRS PRN IV INFLAMMATION 09/09/21 18:45 09/14/21 18:44 09/09/21 20:17 Acetaminophen/ Hydrocodone Bitart (Lortab 10/325) 1 tab PRN Q6HRS PRN PO PAIN 09/09/21 20:00 09/10/21 04:55 Metoprolol Succinate (Toprol Xl) 50 mg DAILY PO 09/10/21 09:00 09/10/21 09:13 Zolpidem Tartrate (Ambien) 5 mg PRN QHS PRN PO INSOMNIA 09/09/21 20:00 09/09/21 20:22 Ondansetron HCl (Zofran Odt) 4 mg PRN Q6HRS PRN PO NAUSEA/VOMITING 09/10/21 05:00 09/10/21 10:13 DC 09/10/21 05:06 Ondansetron HCl (Zofran Odt) 4 mg PRN Q4HRS PRN PO NAUSEA/VOMITING 09/10/21 10:15 09/10/21 10:42 Morphine Sulfate (Morphine Sulfate) 2 mg 1X ONCE IVP 09/10/21 11:00 09/10/21 11:01 DC 09/10/21 10:58 ALLERGIES ALLERGIES: Coded Allergies: No Known Drug Allergies (Unverified , 09/09/21) ROS Review of System 14 point ROS evaluated with pertinent positives noted per HPI PHYSICAL EXAM General: Alert, Oriented X3, Cooperative, No acute distress HEENT: Mucous membr. moist/pink, Other (nasal congestion) Lungs: Clear to auscultation, Normal air movement Heart: Regular rate, Normal S1, Normal S2, No murmurs Abdomen: Soft, No tenderness, Other (obese) Extremities: No cyanosis, No edema Skin: No breakdown, No significant lesion Neuro: Normal speech, Sensation intact Psych/Mental Status: Mental status NL, Mood NL MUSCULOSKELETAL: Full range of motion without pain VITALS/I&O VITALS/I&O: Vital Signs Date Time Temp Pulse Resp B/P (MAP) Pulse Ox O2 Delivery O2 Flow Rate FiO2 09/10/21 11:28 18 09/10/21 10:54 98.5 103 115/59 (77) 97 Room Air 98.5 I & O 09/09/21 09/09/21 09/10/21 15:00 23:00 07:00 Intake Total 1000 ml 300 ml 0 ml Output Total 500 ml Balance 1000 ml -200 ml 0 ml LABS Lab: Laboratory Tests Test 09/09/21 12:54 09/09/21 13:07 09/09/21 13:12 09/09/21 16:18 Sodium Level 140 mmol/L (136-145) Potassium Level 4.3 mmol/L (3.5-5.1) Chloride Level 104 mmol/L (98-107) Carbon Dioxide Level 24 mmol/L (21-32) Anion Gap 12 (6-14) Blood Urea Nitrogen 17 mg/dL (7-20) Creatinine 0.7 mg/dL (0.6-1.0) Estimated GFR (Cockcroft-Gault) 95.2 BUN/Creatinine Ratio 24 (6-20) H Glucose Level 88 mg/dL (70-99) Calcium Level 8.7 mg/dL (8.5-10.1) Total Bilirubin 0.8 mg/dL (0.2-1.0) Aspartate Amino Transferase (AST) 15 U/L (15-37) Alanine Aminotransferase (ALT) 31 U/L (14-59) Alkaline Phosphatase 99 U/L (46-116) Troponin I High Sensitivity 19 ng/L (4-50) 58 ng/L (4-50) H Total Protein 7.6 g/dL (6.4-8.2) Albumin 3.9 g/dL (3.4-5.0) Albumin/Globulin Ratio 1.1 (1.0-1.7) Urine Collection Type Unknown Urine Color Yellow Urine Clarity Clear Urine pH 6.0 (<5.0-8.0) Urine Specific [place] 1.020 (1.000-1.030) Urine Protein Negative mg/dL (NEG-TRACE) Urine Glucose (UA) Negative mg/dL (NEG) Urine Ketones (Stick) Trace mg/dL (NEG) Urine Blood Negative (NEG) Urine Nitrite Negative (NEG) Urine Bilirubin Negative (NEG) Urine Urobilinogen Dipstick 0.2 mg/dL (0.2 mg/dL) Urine Leukocyte Esterase Negative (NEG) Urine RBC 0 /HPF (0-2) Urine WBC 0 /HPF (0-4) Urine Squamous Epithelial Cells Few /LPF Urine Bacteria Moderate /HPF (0-FEW) Urine Mucus Slight /LPF POC Urine HCG, Qualitative Hcg negative (Negative) Test 09/09/21 20:31 09/10/21 05:05 09/10/21 10:02 Urine Opiates Screen Neg (NEG) Urine Methadone Screen Neg (NEG) Urine Barbiturates Neg (NEG) Urine Phencyclidine Screen Neg (NEG) Urine Amphetamine/Methamphetamine Neg (NEG) Urine Benzodiazepines Screen Neg (NEG) Urine Cocaine Screen Neg (NEG) Urine Cannabinoids Screen Neg (NEG) Urine Ethyl Alcohol Neg (NEG) White Blood Count 5.5 x10^3/uL (4.0-11.0) Red Blood Count 4.36 x10^6/uL (3.50-5.40) Hemoglobin 13.7 g/dL (12.0-15.5) Hematocrit 39.6 % (36.0-47.0) Mean Corpuscular Volume 91 fL (79-100) Mean Corpuscular Hemoglobin 32 pg (25-35) Mean Corpuscular Hemoglobin Concent 35 g/dL (31-37) Red Cell Distribution Width 13.7 % (11.5-14.5) Platelet Count 299 x10^3/uL (140-400) Neutrophils (%) (Auto) 59 % (31-73) Lymphocytes (%) (Auto) 29 % (24-48) Monocytes (%) (Auto) 12 % (0-9) H Eosinophils (%) (Auto) 0 % (0-3) Basophils (%) (Auto) 0 % (0-3) Neutrophils # (Auto) 3.2 x10^3/uL (1.8-7.7) Lymphocytes # (Auto) 1.6 x10^3/uL (1.0-4.8) Monocytes # (Auto) 0.7 x10^3/uL (0.0-1.1) Eosinophils # (Auto) 0.0 x10^3/uL (0.0-0.7) Basophils # (Auto) 0.0 x10^3/uL (0.0-0.2) Sodium Level 138 mmol/L (136-145) Potassium Level 3.8 mmol/L (3.5-5.1) Chloride Level 103 mmol/L (98-107) Carbon Dioxide Level 25 mmol/L (21-32) Anion Gap 10 (6-14) Blood Urea Nitrogen 14 mg/dL (7-20) Creatinine 0.9 mg/dL (0.6-1.0) Estimated GFR (Cockcroft-Gault) 71.3 BUN/Creatinine Ratio 16 (6-20) Glucose Level 107 mg/dL (70-99) H Calcium Level 8.3 mg/dL (8.5-10.1) L Total Bilirubin 0.8 mg/dL (0.2-1.0) Aspartate Amino Transferase (AST) 9 U/L (15-37) L Alanine Aminotransferase (ALT) 21 U/L (14-59) Alkaline Phosphatase 79 U/L (46-116) Troponin I High Sensitivity 118 ng/L (4-50) H Total Protein 6.9 g/dL (6.4-8.2) Albumin 3.3 g/dL (3.4-5.0) L Albumin/Globulin Ratio 0.9 (1.0-1.7) L SARS-CoV-2 Antigen (Rapid) Negative (NEGATIVE) Laboratory Tests 09/10/21 05:05 Laboratory Tests 09/09/21 12:54 09/10/21 05:05 ECHOCARDIOGRAM ECHOCARDIOGRAM <Conclusion> The left ventricle is normal size. The systolic function is normal on a technically difficult study. The LV Ejection Fraction is estimated at 50%. There are no regional wall motion abnormalities. There is mild concentric left ventricular hypertrophy. Doppler and Color Flow revealed no significant aortic regurgitation. There is no significant aortic valvular stenosis. Doppler and Color-flow revealed trace mitral regurgitation. Doppler and Color Flow revealed trace tricuspid regurgitation with an estimated PAP of 27 mmHg. DATE: 03/27/21 [id number] HEART CATH HEART CATH Conclusion 1. Normal left sided filling pressures. 2. Normal LV systolic function. EF 55% 3. Normal angiographic appearance of the coronary arteries. Recommendations Aggressive Medical Therapy DATE: 03/27/21 [id number] ASSESSMENT/PLAN ASSESSMENT/PLAN 1. Atypical chest pain: possibly MSK, noncardiac 2. HTN: controlled 3. Recent covid-19: reported +about 2 weeks ago 4. URI/viral syndrome 5. Mild troponin elevation: type 2 demand mediated with recent covid-19 and use of adderall Recommendations 1. Continue home BP regimen 2. May DC from cardiac standpoint 3. She failed to follow up in our office last yr and this time she confirm she will follow up 4. Will need alternative from her adderall, defer to PCP 5. Would consider outpt TTE TED HAYES MD 09/10/21 4766: CARDIAC CONSULT ASSESSMENT/PLAN ASSESSMENT/PLAN Patient seen and examined. Agree with above nurse practitioner note. Troponin elevation likely type II in the setting of recent coronavirus infection. Prior heart catheterization has been unremarkable. Consider outpatient TTE. Supportive care. Okay to discharge from a cardiac perspective. ANKUR MAYA APRN Sep 10, 2021 12:23 TED HAYES MD Sep 10, 2021 17:36
[2021-09-10 15:00] VITALS: BP 138/58
[2021-09-10] MEDS: KETOROLAC 30 MG/ML VIAL. IV PRN (18:47)
[2021-09-10 19:41] VITALS: BP 106/97
[2021-09-10] MEDS: ZOLPIDEM 5 MG TABLET. PO PRN (21:10)
[2021-09-10 23:00] VITALS: BP 126/82
[2021-09-11] MEDS: HYDROcodone/APAP 10/325 1 TAB TABLET PO PRN ×2 (05:23→13:06)
[2021-09-11 07:00] VITALS: BP 96/55
[2021-09-11] MEDS ORDERED: METO50TA4 PO (08:41)
--- NOTE | 2021-09-11 08:42 | DISCH ---
DISCHARGE INSTRUCTIONS Condition on Discharge Condition on Discharge: Stable Activity After Discharge Activity Instructions for Disc: Activity as tolerated Lifting Instructions after Dis: No heavy lifting, No pulling or pushing, Do not lift >10 pounds Exercise Instruction after Dis: Walk 30 min, 3 x per week Weight Bearing Status after Di: As tolerated Diet after Discharge Diet after Discharge: Cardiac Diet Texture: Regular Liquid Texture: Thin Liquid Swallowing Supervision: None needed Checks after Discharge Checks after discharge: Check blood press - daily, Check your Temp as needed, Weigh Yourself Daily Follow-Up Follow up with: PCP within 2 weeks of discharge Follow Up With: Cardiology as scheduled or as needed JAVI VERMA MD Sep 11, 2021 08:42
[2021-09-11] MEDS: METOPROLOL SUCC 24HR ER 50 MG TAB.ER.24H. PO SCH (09:58)
--- NOTE | 2021-09-11 10:11 | NUR ---
SW following. Discussed with RN, discharge order for home with self care. RN advised no SW needs at this time.
[2021-09-11 11:00] VITALS: BP 106/64
[2021-09-11] MEDS: ONDANSETRON ODT 4 MG TAB.RAPDIS. PO PRN (13:05)
--- NOTE | 2021-09-11 13:28 | NUR ---
Pt left unit at 1325 by wheelchair via private vehicle, accompanied by significant other. Pt's IV removed without complication, VSS. Discharge paperwork and follow-up discussed with pt and significant other at the bedside. Additional questions addressed.
--- NOTE | 2021-09-12 16:23 | PDOC3 ---
[facility]-Discharge Summary Date of Admission: Date of Admission: Sep 09, 2021 Date of Discharge: Date of Discharge: Sep 11, 2021 Discharge Diagnosis: Discharge Diagnosis: Chest pain and probable pleurisy in the middle-aged female, who has been having issues with methamphetamine abuse and smokes. The patient will be admitted. We will check serial enzymes, serial EKGs. Consult Cardiology --> no cardiac intervention this admission. Cardiac monitoring. Home meds. Deep venous thrombosis prophylaxis. Full code. Consults: Consults: per cardiology: ASSESSMENT/PLAN 1. Atypical chest pain: possibly MSK, noncardiac 2. HTN: controlled 3. Recent covid-19: reported +about 2 weeks ago 4. URI/viral syndrome 5. Mild troponin elevation: type 2 demand mediated with recent covid-19 and use of adderall Recommendations 1. Continue home BP regimen 2. May DC from cardiac standpoint 3. She failed to follow up in our office last yr and this time she confirm she will follow up 4. Will need alternative from her adderall, defer to PCP 5. Would consider outpt TTE TED HAYES MD 09/10/21 1736: CARDIAC CONSULT ASSESSMENT/PLAN ASSESSMENT/PLAN Patient seen and examined. Agree with above nurse practitioner note. Troponin elevation likely type II in the setting of recent coronavirus infection. Prior heart catheterization has been unremarkable. Consider outpatient TTE. Supportive care. Okay to discharge from a cardiac perspective. Hospital Course: Hospital Course: 36-year-old female who presents to the ER today with chest discomfort. She has had problems with methamphetamine abuse and tobacco abuse. She states she still smokes a pack and a half a day. She used meth just within the past 24 hours. While in the ER, we noticed that her troponins are slightly high at 58. She seems to have some pleuritic chest pain. We are going to admit the patient and consult Cardiology and give her Toradol for her pleurisy. 09/10/21 Patient evaluated examined at bedside. She was resting in bed deformity chest pain had improved. Was still feeling a very bad headache. Said her head was pounding. Also c/o weakness in her arms and legs. Still waiting on Covid PCR. She did have Covid 2 weeks ago but has still been around a lot of people with Covid. Patient clinically stable at day of discharge. Chest pain-free. Rest of hospital course was uneventful Disposition: Disposition/Orders: D/C to Home Activity: Activity: Resume previous activity Diet: Diet: Cardiac Medications: Home Meds Active Scripts Metoprolol Succinate (Toprol XL) 50 Mg Tab.er.24h, 50 MG PO DAILY for blood pressure for 30 Days, #30 TAB.SR 2 Refills Prov:JAVI VERMA MD 09/11/21 Nitroglycerin (NITROSTAT) 0.4 Mg Tab.subl, 0.4 MG SL PRN Q5MIN PRN for CHEST PAIN MDD 3 tablets, #30 TAB Prov:SHONDA BORGES MD 04/10/21 Reported Medications Hydrochlorothiazide (Hydrochlorothiazide) 25 Mg Tablet, 25 MG PO DAILY for , TAB 04/10/21 Discontinued Reported Medications Alprazolam (ALPRAZOLAM) 0.5 Mg Tablet, 0.5 MG PO PRN Q6HRS PRN for ANXIETY / AGITATION, TAB 0 Refills 03/26/21 Discontinued Scripts Doxycycline Hyclate (DOXYCYCLINE HYCLATE) 100 Mg Capsule, 1 CAP PO BID for sinusitis, #28 CAP Prov:SHONDA BORGES MD 04/10/21 Metoprolol Succinate (METOPROLOL SUCCINATE ( XL )) 25 Mg Tab.er.24h, 2 TAB PO DAILY for hypertension for 30 Days, #60 TAB 0 Refills Prov:CLINT KAUR MD 03/30/21 Hydrocodone Bit/Acetaminophen (HYDROCODONE-APAP 10-325 ) 1 Tab Tablet, 1 TAB PO PRN Q6HRS PRN for PAIN for 6 Days, #24 TAB 0 Refills Prov:RALPH SPRINGER MD 03/28/21 Scheduled Hydrochlorothiazide (Hydrochlorothiazide), 25 MG PO DAILY, (Reported) Metoprolol Succinate (Toprol XL), 50 MG PO DAILY Scheduled PRN Nitroglycerin (Nitrostat), 0.4 MG SL PRN Q5MIN PRN for CHEST PAIN Discontinued Medications Alprazolam (Alprazolam), 0.5 MG PO PRN Q6HRS PRN for ANXIETY / AGITATION, (Reported) Doxycycline Hyclate (Doxycycline Hyclate), 1 CAP PO BID Hydrocodone Bit/Acetaminophen (Hydrocodone-Apap 10-325 ), 1 TAB PO PRN Q6HRS PRN for PAIN Metoprolol Succinate (Metoprolol Succinate ( Xl )), 2 TAB PO DAILY Total Time: Total Time: Total time spent was 32 minutes in preparing scripts, discharge planning with SWI and RN and preparing this discharge summary Patient seen and examined on day of discharge. No acute abnormal findings. Justicifation of Admission Dx: Justifications for Admission: Justification of Admission Dx: Yes JAVI VERMA MD Sep 12, 2021 16:23
== END 2021-09-11 13:34 | disposition home or self-care (01) ==
LOC: ER 11:13 → ED HOLD 14:54 → 6 SOUTH 15:56 → 5 SOUTH 09-10 23:48
PROVIDERS: ADMIT Internal Medicine; ATTEND Internal Medicine
DX: R07.89 Other chest pain (principal); Z20.822 Contact with and (suspected) exposure to COVID-19; I10 Essential (primary) hypertension; I25.2 Old myocardial infarction; R09.1 Pleurisy; B34.9 Viral infection, unspecified; F15.10 Other stimulant abuse, uncomplicated; R77.8 Other specified abnormalities of plasma proteins; F17.210 Nicotine dependence, cigarettes, uncomplicated; Z79.82 Long term (current) use of aspirin; Z79.899 Other long term (current) drug therapy
CPT/HCPCS: 36415; 71045; 80053; 80307; 81001; 81025; 84484; 85025; 87086; 87426; 93005; 96361; 96374; 96375; 96376; 99285; G0378; J1885; J2270; J7030; U0003; U0005; G0379